=== PATIENT | male | born 1950 | race Caucasian/White ===

== ENCOUNTER → 2024-09-05 | Outpatient (CLI) | payer MEDICARE, SELFPAY ==
--- NOTE | 2024-09-05 15:47 | STRESSREP ---
Stress Test Report Exercise stress test. 74-year-old male with a history of chest pain Stress protocol: Resting EKG demonstrates normal sinus rhythm with a rate of 68 bpm resting blood pressure is 136/84 mmHg. The patient exercised according to the regular [facility] protocol for a total duration of 7 minutes and 20 seconds attaining a maximum heart rate of 153 bpm which was 104% of maximum predicted heart rate; the maximum workload was 10.1 metabolic equivalents. At rest there were no ST or T wave changes noted to suggest ischemia and at peak exercise upsloping ST changes only were noted which did not meet the criteria for ischemia. No clinical angina was noted the test was terminated due to the target heart rate being achieved/fatigue. The peak blood pressure was 158/80 mmHg. Rate-pressure product was 24,000. Conclusion: Stress test with no EKG criteria for ischemia at a high workload. No arrhythmias noted. No angina present.
== END | disposition home or self-care (01) ==
PROVIDERS: PCP Family Medicine; Referring Provider Family Medicine; Visit Provider Family Medicine
DX: R07.89 Other chest pain (principal)
CPT/HCPCS: 93017

== ENCOUNTER → 2025-01-01 | Outpatient (CLI) | payer MEDICARE, SELFPAY ==
--- NOTE | 2025-01-01 10:09 | RAD_ITS ---
PROCEDURE: CHEST PA AND LATERAL 01/01/2025 REASON FOR EXAM: SOB ON EXERTION TECHNIQUE: Procedure Code: RADCXR Modality: DX Procedure: CHEST PA AND LATERAL COMPARISON: None. 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 Lungs are hypoinflated, with minimal left basilar atelectasis seen. No evidenc e of pulmonary edema. No focal infiltrate noted. No pleural effusion or pneumothorax is seen. The cardiomediastinal silhouette is within the normal range for age. Mild thoracic spine degenerative changes are seen. No acute osseous change is evident. Reading Location: [place] [id number]
== END | disposition home or self-care (01) ==
LOC: MTRAD 10:09
PROVIDERS: PCP Family Medicine; Referring Provider Family Medicine; Visit Provider Family Medicine
DX: R06.02 Shortness of breath (principal)
CPT/HCPCS: 71046

== ENCOUNTER → 2025-01-02 | Outpatient (CLI) | payer MEDICARE, SELFPAY ==
[2025-01-02 10:27] LABS: Hematocrit 40.1 % (40-54); Hemoglobin 13.5 g/dL (13.0-16.5); Immature Granulocytes Count 0.020 X10^3/uL (0.0-0.0); Mean Corp Hgb Conc 33.7 g/dL (32-36); Mean Corpuscular Volume 93.9 fL (80-94); Mean Platelet Vol. 9.2 fl (6.2-12.0); NRBC Flagged by Analyzer 0 % (0-5); Platelet Count 244 K/mm3 (150-450); RBC Distribution Width CV 13.0 % (11.6-14.6); RBC Distribution Width SD 45.1 fl (35.1-43.9); Red Blood Count 4.27 M/mm3 (4.6-6.2); White Blood Count 6.6 K/mm3 (4.4-11.0)
[2025-01-02 10:57] LABS: AST(SGOT) 15 U/L (<=37); Alanine Aminotransfer ALT/SGPT 19 U/L (<=46); Albumin, Serum 4.2 g/dL (3.4-4.8); Alkaline Phosphatase 73 U/L (40-129); Anion Gap 12 (5-15); BUN 22 mg/dL (4-19); BUN/Creat Ratio 26.0 RATIO (10-20); Calcium,Total 9.0 mg/dL (7.6-11.0); Carbon Dioxide 23.3 mmol/L (21.0-32.0); Chloride 107 mmol/L (98-108); Cholesterol 144 mg/dL (<=200); Globulin 2.6 g/dL (2.2-4.2); Glucose 73 mg/dL (70-99); Low Density Lipoprotein Calc. 74 mg/dL; Potassium 3.7 mmol/L (3.3-5.1); Triglycerides 95 mg/dL; Very Low Density Lipoprotein 19 mg/dL (5-40); cholesterol:hdl ratio screen 2.82
[2025-01-02 11:36] LABS: PSA,Total - Annual Screen 0.26 ng/mL (0.02-4.00); Troponin T High Sensitivity 7 ng/L (<=22); Vitamin D,25 Hydroxy 34.1 ng/mL (30-100)
== END | disposition home or self-care (01) ==
PROVIDERS: PCP Family Medicine; Referring Provider Family Medicine; Visit Provider Family Medicine
DX: Z00.00 Encounter for general adult medical examination without abnormal findings (principal); Z12.5 Encounter for screening for malignant neoplasm of prostate; I15.2 Hypertension secondary to endocrine disorders; R06.02 Shortness of breath; I25.10 Atherosclerotic heart disease of native coronary artery without angina pectoris
CPT/HCPCS: 36415; 80053; 80061; 82306; 84153; 84484; 85025; G0103

== ENCOUNTER → 2025-01-23 | Outpatient (CLI) | payer MEDICARE, SELFPAY ==
--- OUTSIDE RECORDS SUMMARY | 2025-01-23 06:16 | XMS RPT_ITS | CCD ---
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 Park Attending Provider Abram, Grayson Attending Unavailable Abram, Chalon Referring Unavailable Abram, Chalon Primary Care Unavailable Abram, Chalon Primary Care Unavailable Abram, Chalon Attending Unavailable Abram, Chalon Referring Unavailable Abram, Chalon Primary Care Unavailable Abram, Chalon Attending Unavailable Abram, Chalon Referring Unavailable Abram, Chalon Primary Care Unavailable Abram, Chalon Attending Unavailable Abram, Chalon Referring Unavailable Abram, Chalon Primary Care Unavailable Abram, Chalon Consulting Unavailable Xavier Mercer Attending Unavailable Abram, Chalon Referring Unavailable Grayson Carney MD Primary Care Physician [phone] Grayson Carney MD Attending Physician Abram JANE, Grayson Referring Provider [phone] Medications Current Medications Medication Drug Class(es) Dates Sig (Normalized) Sig (Original) amoxicillin 875 mg / clavulanate 125 mg oral tablet (1 source) Penicillin-class Antibacterial Start: 05-21-2024 End: 05-28-2024 take 1 tablet by mouth twice daily amoxicillin-clavu lanate potassium (AUGMENTIN) 875-125 mg per tablet Indications: Bacterial sinusitis Take 1 tablet by mouth two times a day for 7 days. 14 tablet 05/21/2024 05/28/2024 Active atorvastatin 20 mg oral tablet (1 source) HMG-CoA Reductase Inhibitor Start: 04-28-2024 take 1 tablet by mouth once atorvastatin (LIPITOR) 20 mg tablet Take 1 tablet by mouth every afternoon. 04/28/2024 Active dutasteride 0.5 mg oral capsule (1 source) 5-alpha Reductase Inhibitor Start: 04-28-2024 take 1 capsule by mouth once daily at bedtime dutasteride (AVODART) 0.5 mg capsule Take 0.5 mg by mouth daily at bedtime. 04/28/2024 Active tamsulosin hydrochloride 0.4 mg oral capsule (1 source) alpha-Adrenergic Mickey Start: 04-28-2024 take 1 capsule by mouth once tamsulosin (FLOMAX) 0.4 mg Take 1 capsule by mouth every afternoon. 04/28/2024 Active 24 hr venlafaxine 75 mg extended release oral capsule (1 source) Serotonin and Norepinephrine Reuptake Inhibitor Start: 04-28-2024 take 1 capsule by mouth every hour venlafaxine ER (EFFEXOR XR) 75 mg 24 hr capsule Take 1 capsule by mouth every afternoon. 04/28/2024 Active Problems Active Problems Problem Classification Problem Date Documented Date Episodic/Chronic Coronary atherosclerosis and other heart disease (1 source) Atherosclerotic heart disease of [place] coronary artery without angina pectoris; Translations: [Atherosclerotic heart disease of [place] coronary artery without angina pectoris] Onset: 01-14-2025 Chronic Other lower respiratory disease (1 source) Shortness of breath; Translations: [Shortness of breath] Onset: 01-09-2025 Episodic Other upper respiratory infections (1 source) Bacterial sinusitis; Translations: [Chronic sinusitis, unspecified] 05-21-2024 Chronic Past or Other Problems Problem Classification Problem Date Documented Da te Episodic/Chronic Nonspecific chest pain (2 sources) Other chest pain; Translations: [Other chest pain] Onset: 09-26-2024 Episodic Results Test Name Value Interpretation Reference Range Facility Absolute lymphocyte countOrd ered By: Grayson Carney on 01-02-2025 Lymphocytes Auto (Unsp spec) [#/Vol] 1.76 10*3/uL 0.83-4.51 [facility] Absolute neutrophil countOrd ered By: Grayson Carney on 01-02-2025 Neutrophils (Bld) [#/Vol] 4.1 10*3/uL 2.0-7.7 [facility] Anion gap in Serum or Plasma Ordered By: Grayson Carney on 01-02-2025 Anion gap [Moles/Vol] 12 mmol/L 5-15 [facility] Automated lymphocyte count a s percentage of total leukocytesOrdered By: Grayson Carney on 01-02-2025 Lymphocytes/100 WBC Auto (Unsp spec) 26.5 % 19-41 [facility] BUN/creatinine ratioOrdered By: Grayson Carney on 01-02-2025 Urea nitrogen/Creatinine [Mass ratio] 26.0 mg/mg High 10-20 [facility] Basophil percentageOrdered B y: Grayson Carney on 01-02-2025 Basophils/100 WBC (Bld) 0.5 % 0-1 [facility] Bilirubin, totalOrdered By: Grayson Carney on 01-02-2025 Bilirubin [Mass/Vol] 0.42 mg/dL 0.00-1.30 [facility] CBC W/Diff, Automatedon 12-22 Absolute Lymph 1.76 X10 3/uL Normal 0.83-4.51 [facility] Comment on above: Performed By: #### L 500.4050, L501.9910, L506.1001, L500.4100, L100.0100, L501.4021 #### [facility] [address] [place], [address] Absolute Neut 4.1 X10 3/uL Normal 2.0-7.7 [facility] Comment on above: Performed By: #### L 500.4050, L501.9910, L506.1001, L500.4100, L100.0100, L501.4021 #### [facility] [address] [place], [address] Basophils/100 WBC (Bld) 0.5 % Normal 0-1 [facility] Comment on above: Performed By: #### L 500.4050, L501.9910, L506.1001, L500.4100, L100.0100, L501.4021 #### [facility] [address] [place], [address] Eosinophils/100 WBC (Bld) 2.3 % Normal 0-5 [facility] Comment on above: Performed By: #### L 500.4050, L501.9910, L506.1001, L500.4100, L100.0100, L501.4021 #### [facility] [address] [place], [address] Erythrocyte distribution width (RBC) [Ratio] 13.0 % Normal 11.6-14.6 [facility] Comment on above: Performed By: #### L 500.4050, L501.9910, L506.1001, L500.4100, L100.0100, L501.4021 #### [facility] [address] [place], [address] Hematocrit (Bld) [Volume fraction] 40.1 % Normal 40-54 [facility] Comment on above: Performed By: #### L 500.4050, L501.9910, L506.1001, L500.4100, L100.0100, L501.4021 #### [facility] [address] [place], [address] Hemoglobin (Bld) [Mass/Vol] 13.5 g/dL Normal 13.0-16.5 [facility] Comment on above: Performed By: #### L 500.4050, L501.9910, L506.1001, L500.4100, L100.0100, L501.4021 #### [facility] [address] [place], [address] IG% 0.300 Normal 0.0-0.9 [facility] Comment on above: Result Comment: IG% - Immature Granulocytes (promyelocytes, myelocytes and metamyelocytes) > 1% indicates that a LEFT SHIFT is Present. Performed By: #### L 500.4050, L501.9910, L506.1001, L500.4100, L100.0100, L501.4021 #### [facility] [address] [place], [address] Lymphocytes/100 WBC (Bld) 26.5 % Normal 19-41 [facility] Comment on above: Performed By: #### L 500.4050, L501.9910, L506.1001, L500.4100, L100.0100, L501.4021 #### [facility] [address] [place], [address] MCH (RBC) [Entitic mass] 31.6 pg Normal 27.0-32.0 [facility] Comment on above: Performed By: #### L 500.4050, L501.9910, L506.1001, L500.4100, L100.0100, L501.4021 #### [facility] [address] [place], [address] MCHC (RBC) [Mass/Vol] 33.7 g/dL Normal 32-36 [facility] Comment on above: Performed By: #### L 500.4050, L501.9910, L506.1001, L500.4100, L100.0100, L501.4021 #### [facility] [address] [place], [address] MCV (RBC) [Entitic vol] 93.9 fL Normal 80-94 [facility] Comment on above: Performed By: #### L 500.4050, L501.9910, L506.1001, L500.4100, L100.0100, L501.4021 #### [facility] [address] [place], [address] Monocytes/100 WBC (Bld) 8.9 % Normal 0-10 [facility] Comment on above: Performed By: #### L 500.4050, L501.9910, L506.1001, L500.4100, L100.0100, L501.4021 #### [facility] [address] [place], [address] Neutrophils/100 WBC (Bld) 61.5 % Normal 47-70 [facility] Comment on above: Performed By: #### L 500.4050, L501.9910, L506.1001, L500.4100, L100.0100, L501.4021 #### [facility] [address] [place], [address] Nucleated RBC (Bld) [#/Vol] 0 10*3/uL Normal 0-5 [facility] Comment on above: Performed By: #### L 500.4050, L501.9910, L506.1001, L500.4100, L100.0100, L501.4021 #### [facility] [address] [place], [address] Platelet mean volume (Bld) [Entitic vol] 9.2 fL Normal 6.2-12.0 [facility] Comment on above: Performed By: #### L 500.4050, L501.9910, L506.1001, L500.4100, L100.0100, L501.4021 #### [facility] [address] [place], [address] Platelets (Bld) [#/Vol] 244 10*3/uL Normal 150-450 [facility] Comment on above: Performed By: #### L 500.4050, L501.9910, L506.1001, L500.4100, L100.0100, L501.4021 #### [facility] [address] [place], [address] RBC (Bld) [#/Vol] 4.27 10*6/uL Low 4.6-6.2 [facility] Comment on above: Performed By: #### L 500.4050, L501.9910, L506.1001, L500.4100, L100.0100, L501.4021 #### [facility] [address] [place], [address] RDW SD 45.1 fl High 35.1-43.9 [facility] Comment on above: Performed By: #### L 500.4050, L501.9910, L506.1001, L500.4100, L100.0100, L501.4021 #### [facility] [address] [place], [address] WBC (Bld) [#/Vol] 6.6 10*3/uL Normal 4.4-11.0 [facility] Comment on above: Performed By: #### L 500.4050, L501.9910, L506.1001, L500.4100, L100.0100, L501.4021 #### [facility] [address] [place], [address] Calculated very low density lipoprotein (VLDL) cholesterol measurementOrdered By: Grayson Carney on 01-02-2025 Calculated very low density lipoprotein (VLDL) cholesterol measurement 19 mg/dL 5-40 [facility] Carbon dioxide, total [Moles /volume] in Central venous bloodOrdered By: Grayson Carney on 01-02-2025 CO2 [Moles/Vol] 23.3 mmol/L 21.0-32.0 [facility] Chloride assayOrdered By: Rose Carney on 01-02-2025 Chloride [Moles/Vol] 107 mmol/L 98-108 [facility] Comprehensive Metabolic Prof ilon 01-02-2025 Albumin [Mass/Vol] 4.2 g/dL Normal 3.4-4.8 [facility] Comment on above: Performed By: #### L 500.4050, L501.9910, L506.1001, L500.4100, L100.0100, L501.4021 #### [facility] [address] [place], [address] Albumin/Globulin [Mass ratio] 1.6 {ratio} Normal 0.9-2.4 [facility] Comment on above: Performed By: #### L 500.4050, L501.9910, L506.1001, L500.4100, L100.0100, L501.4021 #### [facility] [address] [place], [address] ALK PHOS 73 U/L Normal 40-129 [facility] Comment on above: Performed By: #### L 500.4050, L501.9910, L506.1001, L500.4100, L100.0100, L501.4021 #### [facility] [address] [place], [address] ALT [Catalytic activity/Vol] 19 U/L Normal <=46 [facility] Comment on above: Performed By: #### L 500.4050, L501.9910, L506.1001, L500.4100, L100.0100, L501.4021 #### [facility] [address] [place], [address] AST [Catalytic activity/Vol] 15 U/L Normal <=37 [facility] Comment on above: Performed By: #### L 500.4050, L501.9910, L506.1001, L500.4100, L100.0100, L501.4021 #### [facility] [address] [place], [address] Bilirubin [Mass/Vol] 0.42 mg/dL Normal 0.00-1.30 [facility] Comment on above: Performed By: #### L 500.4050, L501.9910, L506.1001, L500.4100, L100.0100, L501.4021 #### [facility] [address] [place], [address] BUN/CRE 26.0 RATIO High 10-20 [facility] Comment on above: Performed By: #### L 500.4050, L501.9910, L506.1001, L500.4100, L100.0100, L501.4021 #### [facility] [address] [place], [address] Calcium [Mass/Vol] 9.0 mg/dL Normal 7.6-11.0 [facility] Comment on above: Performed By: #### L 500.4050, L501.9910, L506.1001, L500.4100, L100.0100, L501.4021 #### [facility] [address] [place], [address] Chloride [Moles/Vol] 107 mmol/L Normal 98-108 [facility] Comment on above: Performed By: #### L 500.4050, L501.9910, L506.1001, L500.4100, L100.0100, L501.4021 #### [facility] [address] [place], [address] CO2 [Moles/Vol] 23.3 mmol/L Normal 21.0-32.0 [facility] Comment on above: Performed By: #### L 500.4050, L501.9910, L506.1001, L500.4100, L100.0100, L501.4021 #### [facility] [address] [place], [address] Creatinine [Mass/Vol] 0.85 mg/dL Normal 0.70-1.20 [facility] Comment on above: Performed By: #### L 500.4050, L501.9910, L506.1001, L500.4100, L100.0100, L501.4021 #### [facility] [address] [place], [address] GAP 12 Normal 5-15 [facility] Comment on above: Performed By: #### L 500.4050, L501.9910, L506.1001, L500.4100, L100.0100, L501.4021 #### [facility] [address] [place], [address] GFR/1.73 sq M.predicted among non-blacks MDRD (S/P/Bld) [Vol rate/Area] 91 mL/min/{1.73_m2} Normal >60 [facility] Comment on above: Result Comment: mL/m in/1.73m2 CKD-EPI Creatinine Equation (2020) Performed By: #### L 500.4050, L501.9910, L506.1001, L500.4100, L100.0100, L501.4021 #### [facility] [address] [place], [address] Globulin (S) [Mass/Vol] 2.6 g/dL Normal 2.2-4.2 [facility] Comment on above: Performed By: #### L 500.4050, L501.9910, L506.1001, L500.4100, L100.0100, L501.4021 #### [facility] [address] [place], [address] Glucose [Mass/Vol] 73 mg/dL Normal 70-99 [facility] Comment on above: Performed By: #### L 500.4050, L501.9910, L506.1001, L500.4100, L100.0100, L501.4021 #### [facility] [address] [place], [address] Potassium [Moles/Vol] 3.7 mmol/L Normal 3.3-5.1 [facility] Comment on above: Performed By: #### L 500.4050, L501.9910, L506.1001, L500.4100, L100.0100, L501.4021 #### [facility] [address] [place], [address] Sodium [Moles/Vol] 142 mmol/L Normal 133-145 [facility] Comment on above: Performed By: #### L 500.4050, L501.9910, L506.1001, L500.4100, L100.0100, L501.4021 #### [facility] [address] [place], [address] T PROT 6.8 g/dL Normal 5.9-8.4 [facility] Comment on above: Performed By: #### L 500.4050, L501.9910, L506.1001, L500.4100, L100.0100, L501.4021 #### [facility] [address] [place], [address] Urea nitrogen [Mass/Vol] 22 mg/dL High 4-19 [facility] Comment on above: Performed By: #### L 500.4050, L501.9910, L506.1001, L500.4100, L100.0100, L501.4021 #### [facility] [address] [place], [address] Eosinophil percentageOrdered By: Grayson Carney on 01-02-2025 Eosinophils/100 WBC (Bld) 2.3 % 0-5 [facility] Erythrocyte distribution wid th ratioOrdered By: Grayson Carney on 01-02-2025 Erythrocyte distribution width (RBC) [Ratio] 13.0 % 11.6-14.6 [facility] Erythrocyte distribution wid th standard deviationOrdered By: Grayson Carney on 01-02-2025 Erythrocyte distribution width (RBC) [Ratio] 45.1 fl High 35.1-43.9 [facility] Glomerular filtration rate ( GFR) estimation/1.73 sq m using serum, plasma, or whole bOrdered By: Grayson Carney on 01-02-2025 GFR/1.73 sq M.predicted among non-blacks MDRD (S/P/Bld) [Vol rate/Area] 91 mL/min/{1.73_m2} >60 [facility] Comment on above: mL/min/1.73m2 CKD-EP I Creatinine Equation (2020) Hematocrit Auto (Bld) [Volum e fraction]Ordered By: Grayson Carney on 01-02-2025 Hematocrit (Bld) [Volume fraction] 40.1 % 40-54 [facility] Hemoglobin measurementOrdere d By: Grayson Carney on 01-02-2025 Hemoglobin (Bld) [Mass/Vol] 13.5 g/dL 13.0-16.5 [facility] Immature granulocytes/100 WB C Auto (Bld)Ordered By: Grayson Carney on 01-02-2025 Immature granulocytes/100 WBC (Bld) 0.300 % 0.0-0.9 [facility] Comment on above: IG% - Immature Granu locytes (promyelocytes, myelocytes and metamyelocytes) > 1% indicates that a LEFT SHIFT is Present. L501.4021on 01-02-2025 Trop T High Sen 7 ng/L Normal <=22 [facility] Comment on above: Performed By: #### L 500.4050, L501.9910, L506.1001, L500.4100, L100.0100, L501.4021 #### [facility] [address] [place], [address] LDL calc ser/plasOrdered By: Grayson Carney on 01-02-2025 Cholesterol in LDL [Mass/Vol] 74 mg/dL [facility] Comment on above: Jixvnzifkh=377-077 m g/dL & Higher Qsgv=011 mg/dL or greaterFriedwald Equation for LDL-C Laboratory - Chemistry and C hemistry - challengeOrdered By: Grayson Carney on 01-02-2025 AST [Catalytic activity/Vol] 15 U/L <38 [facility] Lipid Profileon 01-02-2025 CHOL:HDL 2.82 Normal [facility] Comment on above: Performed By: #### L 500.4050, L501.9910, L506.1001, L500.4100, L100.0100, L501.4021 #### [facility] [address] [place], [address] Cholesterol [Mass/Vol] 144 mg/dL Normal <=200 [facility] Comment on above: Result Comment: Chol esterol level, Desirable <200 mg/dL Borderline high cholesterol 200-239 mg/dL High cholesterol >=240 mg/dL Recommendations of the NCEP Adult Treatment Panel for the following risk-cutoff thresholds for the [place] population. Performed By: #### L 500.4050, L501.9910, L506.1001, L500.4100, L100.0100, L501.4021 #### [facility] [address] [place], [address] Cholesterol in HDL [Mass/Vol] 51 mg/dL Normal [facility] Comment on above: Result Comment: Samantha onal Cholesterol Education Program (NCEP) guidelines: <40 mg/dL: Low HDL-cholesterol (major risk factor for CHD) >= 60 mg/dL: High HDL-cholesterol (negative risk factor for CHD) HDL-cholesterol is affected by a number of factors, e.g. smoking, exercise, hormones, sex and age. Performed By: #### L 500.4050, L501.9910, L506.1001, L500.4100, L100.0100, L501.4021 #### [facility] [address] [place], [address] Cholesterol in LDL [Mass/Vol] 74 mg/dL Normal [facility] Comment on above: Result Comment: Bord kjnlll=002-645 mg/dL Higher Ogau=349 mg/dL or greater Friedwald Equation for LDL-C Performed By: #### L 500.4050, L501.9910, L506.1001, L500.4100, L100.0100, L501.4021 #### [facility] [address] [place], [address] Cholesterol in VLDL [Mass/Vol] 19 mg/dL Normal 5-40 [facility] Comment on above: Performed By: #### L 500.4050, L501.9910, L506.1001, L500.4100, L100.0100, L501.4021 #### [facility] [address] [place], [address] Triglyceride [Mass/Vol] 95 mg/dL Normal [facility] Comment on above: Result Comment: The drugs N-Acetylcysteine and Metamizole may falsely depress this assay. Normal range: <150 mg/dL Borderline High: 150-199 mg/dL High: 200-499 mg/dL Very High: >500 mg/dL Performed By: #### L 500.4050, L501.9910, L506.1001, L500.4100, L100.0100, L501.4021 #### [facility] [address] [facility] [place], [place], [address] MCV (mean corpuscular volume ) determinationOrdered By: Grayson Carney on 01-02-2025 MCV (RBC) [Entitic vol] 93.9 fL 80-94 [facility] Mean corpuscular hemoglobin (MCH) determinationOrdered By: Grayson Carney on 01-02-2025 MCH (RBC) [Entitic mass] 31.6 pg 27.0-32.0 [facility] Mean corpuscular hemoglobin concentration (MCHC) determinationOrdered By: Grayson Carney on 01-02-2025 MCHC (RBC) [Mass/Vol] 33.7 g/dL 32-36 [facility] Mean platelet volume determi nationOrdered By: Grayson Carney on 01-02-2025 Platelet mean volume (Bld) [Entitic vol] 9.2 fL 6.2-12.0 [facility] Monocyte percentageOrdered B y: Grayson Carney on 01-02-2025 Monocytes/100 WBC (Bld) 8.9 % 0-10 [facility] Neutrophil percentageOrdered By: Grayson Carney on 01-02-2025 Neutrophils/100 WBC (Bld) 61.5 % 47-70 [facility] Nucleated red blood cell per centageOrdered By: Grayson Carney on 01-02-2025 Nucleated RBC/100 WBC (Bld) [Ratio] 0 % 0-5 [facility] PSA,Total - Annual Screenon 01-02-2025 PSA,TOT SCREEN 0.26 ng/mL Normal 0.02-4.00 [facility] Comment on above: Result Comment: This test was performed using the [employer] tPSA method. Measured values of a patient??sample can vary depending on the testing procedure used. PSA values determined on patient samples by different testing procedures cannot be used interchangeably. If there is a change in PSA assays while monitoring therapy, sequential testing should be performed to confirm baseline values. Performed By: #### L 500.4050, L501.9910, L506.1001, L500.4100, L100.0100, L501.4021 #### [facility] [place], [address] Platelet countOrdered By: Rose Carney on 01-02-2025 Platelets (Bld) [#/Vol] 244 10*3/uL 150-450 [facility] Potassium measurement (mass/ volume)Ordered By: Grayson Carney on 01-02-2025 Potassium (Unsp spec) [Mass/Vol] 3.7 mmol/L 3.3-5.1 [facility] RBC Auto (Bld) [#/Vol]Ordere d By: Grayson Carney on 01-02-2025 RBC (Bld) [#/Vol] 4.27 10*6/uL Low 4.6-6.2 [facility] Screening total cholesterol/ high density lipoprotein (HDL) cholesterol ratioOrdered By: Grayson Carney on 01-02-2025 Cholesterol.total/Choles terol in HDL [Mass ratio] 2.82 {ratio} [facility] Serum creatinine measurement (mass/volume)Ordered By: Grayson Carney on 01-02-2025 Creatinine [Mass/Vol] 0.85 mg/dL 0.70-1.20 [facility] Serum globulin measurementOr dered By: Grayson Carney on 01-02-2025 Globulin (S) [Mass/Vol] 2.6 g/dL 2.2-4.2 [facility] Serum glucose measurement (m ass/volume)Ordered By: Grayson Carney on 01-02-2025 Glucose [Mass/Vol] 73 mg/dL 70-99 [facility] Serum or plasma alanine kirkland otransferase (ALT) measurementOrdered By: Bipinanders Abram on 01-02-2025 ALT [Catalytic activity/Vol] 19 U/L <47 [facility] Serum or plasma albumin baldo urement (mass/volume)Ordered By: Grayson Carney on 01-02-2025 Albumin [Mass/Vol] 4.2 g/dL 3.4-4.8 [facility] Serum or plasma albumin/glob ulin mass ratioOrdered By: [facility] on 01-02-2025 Albumin/Globulin [Mass ratio] 1.6 {ratio} 0.9-2.4 [facility] Serum or plasma alkaline imer sphatase measurementOrdered By: [facility] 01-02-2025 ALP [Catalytic activity/Vol] 73 U/L 40-129 [facility] Serum or plasma calcium baldo urement (mass/volume)Ordered By: Grayson Carney on 01-02-2025 Calcium [Mass/Vol] 9.0 mg/dL 7.6-11.0 [facility] Serum or plasma cholesterol in HDL measurement (mass/volume)Ordered By: Bipinanders Carney on 01-02-2025 Cholesterol in HDL [Mass/Vol] 51 mg/dL >40 [facility] Comment on above: National Cholesterol Education Program (NCEP) guidelines:<40 mg/dL: Low HDL-cholesterol (major risk factor for CHD)>= 60 mg/dL: High HDL-cholesterol (negative risk factor for CHD)HDL-cholesterol is affected by a number of factors, e.g. smoking, exercise, hormones, sex and age. Serum or plasma cholesterol measurement (mass/volume)Ordered By: Bipinanders Carney on 01-02-2025 Cholesterol [Mass/Vol] 144 mg/dL <201 [facility] Comment on above: Cholesterol level, D esirable <200 mg/dLBorderline high cholesterol 200-239 mg/dLHigh cholesterol >=240 mg/dLRecommendations of the NCEP Adult Treatment Panel for the following risk-cutoff thresholds for the [place] population. Serum or plasma urea nitroge n measurement (mass/volume)Ordered By: Grayson Carney on 01-02-2025 Urea nitrogen [Mass/Vol] 22 mg/dL High 4-19 [facility] Sodium levelOrdered By: Bipin Carney on 01-02-2025 Sodium [Moles/Vol] 142 mmol/L 133-145 [facility] Total proteinOrdered By: Ernestina Carney on 01-02-2025 Protein [Mass/Vol] 6.8 g/dL 5.9-8.4 [facility] Triglycerides measurementOrd ered By: Grayson Carney on 01-02-2025 Triglyceride [Mass/Vol] 95 mg/dL <199 [facility] Comment on above: The drugs N-Acetylcy steine and Metamizole may falsely depress this assay. Normal range: <150 mg/dLBorderline High: 150-199 mg/dLHigh: 200-499 mg/dLVery High: >500 mg/dL Troponin T.cardiac [Mass/vol ume] in Serum or Plasma by High sensitivity methodOrdered By: Grayson Carney on 01-02-2025 Troponin T.cardiac High sensitivity method [Mass/Vol] 7 ng/L <22 [facility] Vitamin D,25 Hydroxyon 01-02 Vitamin D 25-OH 34.1 ng/mL Normal 30-100 [facility] Comment on above: Result Comment: Sadie min D Status Deficiency: <20 ng/mL (50nmol/L) Insufficiency: 20-30 ng/mL (50-75 nmol/L) Sufficiency: 30-100 ng/mL (75-250 nmol/L) Toxicity: >100 ng/mL (>250 nmol/L) Performed By: #### L 500.4050, L501.9910, L506.1001, L500.4100, L100.0100, L501.4021 #### [facility] Laboratory [address] [place], [address] White blood cell (WBC) count Ordered By: Grayson Carney on 01-02-2025 WBC (Bld) [#/Vol] 6.6 10*3/uL 4.4-11.0 [facility] Chest PA and Lateralon 01-01 Chest PA and Lateral [facility] Imaging Services [address] [place] [address] Chest PA and Lateral MR#: [id number] Acct: [id number] Name: EVELYN BALL Rep #: [id number] : 1950 M 74 From: Corbin Abarca PCP: Dr. Grayson Carney MD Status: REG CLI Study: Chest PA and Lateral Date of Exam: 01/01/25 Exam# [id number] Ordering Dr: Grayson Carney MD PROCEDURE: CHEST PA AND LATERAL 01/01/2025 REASON FOR EXAM: SOB ON EXERTION TECHNIQUE: Procedure Code: RADCXR Modality: DX Procedure: CHEST PA AND LATERAL COMPARISON: None. 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 Lungs are hypoinflated, with minimal left basilar atelectasis seen. No evidence of pulmonary edema. No focal infiltrate noted. No pleural effusion or pneumothorax is seen. The cardiomediastinal silhouette is within the normal range for age. Mild thoracic spine degenerative changes are seen. No acute osseous change is evident. Reading Location: [place] [address] CC: Dr. Grayson Carney MD Analyzer Sales: Signed Normal [facility] Cardiovascular stress test r eportOrdered By: Xavier Mercer on 09-05-2024 Study report [facility] Services [address] [place] [address] MR#: [id number] Acct: [id number] Name: EVELYN BALL Rep #: [id number] : 1950 74 From: Xavier Mercer MD Primary Care: Dr. Grayson Carney MD Status: REG CLI Referring Dr: Grayson Carney MD Sex: M C Stress Test Report Exercise stress test. 74-year-old male with a history of chest pain Stress protocol: Resting EKG demonstrates normal sinus rhythm with a rate of 68 bpm resting bloodpressure is 136/84 mmHg. The patient exercised according to the regular [facility] protocol for a total duration of 7 minutes and 20 seconds attaining a maximum heart rate of 153 bpm which was 104% of maximum predicted heart rate; the maximum workload was 10.1 metabolic equivalents. At rest there were no ST or T wave changes noted to suggest ischemia and at peak exercise upsloping ST changesonly were noted which did not meet the criteria for ischemia. No clinical angina was noted the test was terminated due to the target heart rate being achieved/fatigue. The peak blood pressure was 158/80 mmHg. Rate-pressure product was 24,000. Conclusion: Stress test with no EKG criteria for ischemia at a high workload. No arrhythmias noted. No angina present. 09/05/241548 Date _ Xavier Mercer MD CC: Dr. Grayson Carney MD ~ Date Dictated: 09/05/241546 Date Transcribed: 09/05/241546 Analyzer Sales: [place] Signed [facility] Work Phone: Stress Reporton 09-05-2024 Stress Report [facility] Cardiovascular Services [address] [place] [address] MR#: [id number] Acct: [id number] Name: EVELYN BALL Rep #: [id number] : 1950 74 From: Xavier Mercer MD Primary Care: Dr. Grayson Carney MD Status: REG CLI Referring Dr: Grayson Carney MD Sex: M C Stress Test Report Exercise stress test. 74-year-old male with a history of chest pain Stress protocol: Resting EKG demonstrates normal sinus rhythm with a rate of 68 bpm resting blood pressure is 136/84 mmHg. The patient exercised according to the regular [facility] protocol for a total duration of 7 minutes and 20 seconds attaining a maximum heart rate of 153 bpm which was 104% of maximum predicted heart rate; the maximum workload was 10.1 metabolic equivalents. At rest there were no ST or T wave changes noted to suggest ischemia and at peak exercise upsloping ST changes only were noted which did not meet the criteria for ischemia. No clinical angina was noted the test was terminated due to the target heart rate being achieved/fatigue. The peak blood pressure was 158/80 mmHg. Rate- pressure product was 24,000. Conclusion: Stress test with no EKG criteria for ischemia at a high workload. No arrhythmias noted. No angina present. 09/05/24 1549 Date Xavier Mercer MD CC: Dr. Grayson Carney MD Date Dictated: 09/05/241546 Date Transcribed: 09/05/241546 Analyzer Sales: [place] Signed [facility] Office Visit (UCWSTR ) EVELYN BALL ([id number]) 1950 M Date Time Provider Department 05/21/24 9:30 AM MÓNICA FREEMAN [facility] During your visit today, we recorded the following information about you: Temperature Pulse Respiration Blood pressure 96.9 degrees 74/minute 16/minute 132/84 Weight 88.3 kg Mónica Freeman APRN.[facility] 05/21/2024 11:44 AM Signed Subjective HPI HPI Evelyn Abarca Anthony is a 73 year old male who presents today for CC of cough, congestion. This started 1 week ago. Has tried otc medication for relief. Symptoms are worsened by nothing. Risk factors sick exposures. Hx of sinus infections. Nonsmoker. Patient not known to [facility], denies renal/hepatic disease. .Patient presents with: Chest Congestion: cough, sinus pressure, headache x 1 week No past medical history on file. No past surgical history on file. ALLERGIES Patient has no known allergies. MEDICATIONS atorvastatin (LIPITOR) 20 mg tablet Take 1 tablet by mouth every afternoon. dutasteride (AVODART) 0.5 mg capsule Take 0.5 mg by mouth daily at bedtime. tamsulosin (FLOMAX) 0.4 mg Take 1 capsule by mouth every afternoon. venlafaxine ER (EFFEXOR XR) 75 mg 24 hr capsule Take 1 capsule by mouth every afternoon. No family history on file. Review of Systems Constitutional: Negative for fever. HENT: Positive for congestion and sinus pain. Negative for ear pain, nosebleeds and sore throat. Respiratory: Positive for cough. Negative for shortness of breath and wheezing. Musculoskeletal: Negative for neck pain. Objective Blood pressure 132/84, pulse 74, temperature 36.1 ?C (96.9 ?F), resp. rate 16, weight 88.3 kg (194 lb 10.7 oz), SpO2 96%. Physical Exam Constitutional: General: He is not in acute distress. Appearance: He is not toxic-appearing or diaphoretic. HENT: Head: Normocephalic and atraumatic. Nose: Nose normal. Mouth/Throat: Pharynx: Uvula midline. No pharyngeal swelling, oropharyngeal exudate, posterior oropharyngeal erythema or uvula swelling. Eyes: General: Lids are normal. No scleral icterus. Right eye: No discharge. Left eye: No discharge. Conjunctiva/sclera: Conjunctivae normal. Pupils: Pupils are equal, round, and reactive to light. Neck: Trachea: Trachea normal. Cardiovascular: Rate and Rhythm: Normal rate and regular rhythm. Heart sounds: Normal heart sounds. Pulmonary: Effort: Pulmonary effort is normal. Breath sounds: Normal breath sounds. Musculoskeletal: Cervical back: Normal range of motion and neck supple. Lymphadenopathy: Cervical: No cervical adenopathy. Right cervical: No superficial cervical adenopathy. Left cervical: No superficial cervical adenopathy. Skin: Findings: No rash. Neurological: Mental Status: He is alert and oriented to person, place, and time. ASSESSMENT/PLAN: 1. Bacterial sinusitis - ICD9: 473.9, 041.9, ICD10: J32.9, B96.89 - Will begin treatment with as per antibiotic as written, see orders - Supportive care with plenty of fluids, rest, and analgesia prn. - Follow up in 3-5 days if symptoms persist or worsen. -If you experience chest pain/shortness of breath go to ER - AMOXICILLIN 875 MG-POTASSIUM CLAVULANATE 125 MG TABLET Agrees to plan Declines avs Mónica Freeman APRN.CNP Allergies As of Date: 05/21/2024 (No Known Allergies) Date Reviewed: 05/21/2024 Reviewed by: Jayne Holbrook MA - Fully Assessed Reason for Visit: Chest Congestion [236] Cmt: cough, sinus pressure, headache x 1 week Primary Visit Diagnosis:Bacterial sinusitis [J32.9, B96.89] Order(s):amoxicillin- clavulanate potassium (AUGMENTIN) 875-125 mg per tabletTake 1 tablet by mouth two times a day for 7 days.Disp: 14 tabletRfl: 0 Prescriptions as of 05/21/2024 - atorvastatin (LIPITOR) 20 mg tablet Take 1 tablet by mouth every afternoon. - dutasteride (AVODART) 0.5 mg capsule Take 0.5 mg by mouth daily at bedtime. - tamsulosin (FLOMAX) 0.4 mg Take 1 capsule by mouth every afternoon. - venlafaxine ER (EFFEXOR XR) 75 mg 24 hr capsule Take 1 capsule by mouth every afternoon. - amoxicillin-clavulana te potassium (AUGMENTIN) 875-125 mg per tablet Take 1 tablet by mouth two times a day for 7 days. Problem List As Of Date: 05/21/2024 (None) Prescriptions ordered this encounter Disp Refills Start End AMOXICILLIN 875 MG-POTASSIUM CLAVULA* 14 t* 0 05/21/2024 05/28/2024 Route: ORAL Sig: Take 1 tablet by mouth two times a day for 7 days. Encounter Status:Closed by MÓNICA FREEMAN on 05/21/[address] [facility] Vital Signs Date Time Vital Sign Value Performing Clinician Faci lity 05-21-2024 09:39-0500 Body temperature 96.91 [degF] Mónica Freeman APRN.CNP Work Phone: [facility] 05-21-2024 09:39-0500 Body weight 88.3 kg Mónica Freeman APRN.CNP Work Phone: [facility] 05-21-2024 09:39-0500 Diastolic blood pressure 84 mm[Hg] Mónica Freeman APRN.CNP Work Phone: [facility] 05-21-2024 09:39-0500 Heart rate 74 /min Mónica Freeman SEARCH ENGINE MARKETING STRATEGIST.LAUNDRY ASSISTANT Work Phone: [facility] 05-21-2024 09:39-0500 Respiratory rate 16 /min Mónica Freeman SEARCH ENGINE MARKETING STRATEGIST.LAUNDRY ASSISTANT Work Phone: [facility] 05-21-2024 09:39-0500 SaO2% (BldA) [Mass fraction] 96 % Mónica Freeman SEARCH ENGINE MARKETING STRATEGIST.LAUNDRY ASSISTANT Work Phone: [facility] 05-21-2024 09:39-0500 Systolic blood pressure 132 mm[Hg] Mónica Freeman SEARCH ENGINE MARKETING STRATEGIST.LAUNDRY ASSISTANT Work Phone: [facility] Encounters Encounter Date Encounter Type Care Provider Facility Start: 01-23-2025 ambulatory Grayson [facility] Facility:[facility] Start: 01-09-2025 Encounter for genera l adult medical examination without abnormal findings Grayson Carney [facility] Start: 01-02-2025 End: 01-02-2025 ambulatory Grayson Carney MD Work Phone: -[facility] [employer] Start: 01-02-2025 End: 01-02-[address] Grayson Carney MD -Labor[facility] [place] Work Phone: Start: 01-01-2025 End: 01-02-2025 ambulatory [facility] Facility:[facility] Start: 01-01-2025 End: 01-01-[address] Grayson Carney MD -Radiology [place] Work Phone: Start: 01-01-2025 End: 01-01-2025 ambulatory Grayson Abram Facility:[facility] Start: 09-05-2024 ambulatory Grayson Carney Facility:[facility] Start: 09-05-2024 Non-patient / Non-visit Dr. Lorena JANE -[facility] Start: 09-05-2024 End: 09-05-2024 ambulatory Grayson Carney MD Work Phone: [facility] Work Phone: Start: 09-05-2024 End: 09-05-[address] Grayson Carney MD -Cardiovascular Services Work Phone: Start: 09-05-2024 End: 09-05-2024 ambulatory Grayson Carney Facility:[facility] Start: 05-21-2024 End: 05-21-[facility] Start: 05-21-2024 End: 05-21-2024 Patient encounter procedure Mónica Freeman APRN.LAUNDRY ASSISTANT Work Phone: [facility] Comment on above: Bacterial sinusitis (Primary Dx) Procedures Date Procedure Procedure Detail Performing Clinician Start: 01-02-2025 Prostate specific an tigen measurement Grayson Carney MD Work Phone: Comment on above: This test was perfor med using the [employer] tPSA method. Measured values of a patient sample can vary depending on the testing procedure used. PSA values determined on patient samples by different testing procedures cannot be used interchangeably. If there is a change in PSA assays while monitoring therapy, sequential testing should be performed to confirm baseline values. Start: 01-02-2025 Vitamin D, 25-hydrox y measurement Grayson Carney MD Work Phone: Comment on above: Vitamin D StatusDefi ciency: <20 ng/mL (50nmol/L)Insufficiency: 20-30 ng/mL (50-75 nmol/L)Sufficiency: 30-100 ng/mL (75-250 nmol/L)Toxicity: >100 ng/mL (>250 nmol/L) Start: 01-01-2025 Radiologic exam ches t 2 views Grayson Carney MD Work Phone: Plan of Treatment Date Care Activity Detail Author Start: 2025 RSV Vaccine (1 - 1-d ose 75+ series) RSV Vaccine (1 - 1-dose 75+ series) [facility] Start: 04-23-2024 Advance Directive Discussion Advance Directive Discussion [facility] Start: 12-23-2023 Covid-19 Vaccine ( season) Covid-19 Vaccine () [facility] Start: 12-23-2023 Influenza vaccination Influenza Vacc ine (#1) [facility] Start: 2000 Pneumococcal Vaccine : 50+ (1 of 1 - PCV) Pneumococcal Vaccine: 50+ (1 of 1 - PCV) [facility] Start: 2000 Shingrix Vaccine (1 of 2) Shingrix V accine (1 of 2) [facility] Start: 08-16-1995 Diabetes Screening Diabetes Screenin g [facility] Start: 08-16-1995 Screening for malign ant neoplasm of colon [facility] Start: 1985 [facility] Start: 1969 Urine microalbumin profile DTaP,Tdap,Td Vaccine (1 - Tdap) [facility] Start: 1968 Anxiety Screening Anxiety Screening [facility] Start: 1968 Depression Screening Depression Scre ening [facility] Start: 1968 Hepatitis C screening Hepatitis C [facility] Payers Date Payer Category Payer Self-pay 2024 Medicare AETNA MEDICARE A ETNA MEDICARE PPO [id number] 2024-Present [phone] [address] [place] [address] PPO [id number] 2024 Medicare [id number] Unknown [id number] Unknown [id number] Unknown [id number] Unknown [id number] Unknown [id number] Social History Date Type Detail Facility Tobacco smoking status NMIS Tobacco smoking consumption unknown [facility] Start: 1950 Sex assigned at Not on file [facility] 1950 Sex Assigned At Male [facility] Radiology Diagnostic study note 01-01-2025 Note Date & Type Note Facility 01-01-2025 Radiology Diagnostic study note [facility] Imaging Services [address] [place] [address] Chest PA and Lateral MR#: [id number] Acct: [id number] Name: EVELYN BALL Rep #: [id number] : 1950 M 74 From: Josep Condon MD PCP: Dr. Grayson Carney MD Status: REG CL I Study:Chest PA and Lateral Date of Exam: 01/01/25 Exam# [id number] Ordering Dr: Ernestina Carney MD PROCEDURE: CHEST PA AND LATERAL 01/01/2025 REASON FOR EXAM: SOB ON EXERTION TECHNIQUE: Procedure Code: RADCXR Modality: DX Procedure: CHEST PA AND LATERAL COMPARISON: None. 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 Lungs are hypoinflated, with minimal left basilar atelectasis seen. No evidenceof pulmonary edema. No focal infiltrate noted. No pleural effusion or pneumothorax is seen. The cardiomediastinal silhouette is within the normal range for age. Mild thoracic spine degenerative changes are seen. No acute osseous change is evident. Reading Location: [place] [address] CC: Dr. Grayson Carney MD ~ Analyzer Sales: Signed [facility] Progress note 05-21-2024 Note Date & Type Note Facility 05-21-2024 Note HNO ID: [id number] Author: MÓNICA FREEMAN APRN.LAUNDRY ASSISTANT Service: ? Author Type: Nurse Practitioner Type: Progress Notes Filed: 05/21/2024 11:44 Note Text: Subjective HPI HPI Evelyn Ball is a 73 year old male who presents today for CC of cough, congestion. This started 1 week ago. Has tried otc medication for relief. Symptoms are worsened by nothing. Risk factors sick exposures. Hx of sinus infections. Nonsmoker. Patient not known to [facility], denies renal/hepatic disease. .Patient presents with: Chest Congestion: cough, sinus pressure, headache x 1 week No past medical history on file. No past surgical history on file. ALLERGIES Patient has no known allergies. MEDICATIONS atorvastatin (LIPITOR) 20 mg tablet Take 1 tablet by mouth every afternoon. dutasteride (AVODART) 0.5 mg capsule Take 0.5 mg by mouth daily at bedtime. tamsulosin (FLOMAX) 0.4 mg Take 1 capsule by mouth every afternoon. venlafaxine ER (EFFEXOR XR) 75 mg 24 hr capsule Take 1 capsule by mouth every afternoon. No family history on file. Review of Systems Constitutional: Negative for fever. HENT: Positive for congestion and sinus pain. Negative for ear pain, nosebleeds and sore throat. Respiratory: Positive for cough. Negative for shortness of breath and wheezing. Musculoskeletal: Negative for neck pain. Objective Blood pressure 132/84, pulse 74, temperature 36.1 ?C (96.9 ?F), resp. rate 16, weight 88.3 kg (194 lb 10.7 oz), SpO2 96%. Physical Exam Constitutional: General: He is not in acute distress. Appearance: He is not toxic-appearing or diaphoretic. HENT: Head: Normocephalic and atraumatic. Nose: Nose normal. Mouth/Throat: Pharynx: Uvula midline. No pharyngeal swelling, oropharyngeal exudate, posterior oropharyngeal erythema or uvula swelling. Eyes: General: Lids are normal. No scleral icterus. Right eye: No discharge. Left eye: No discharge. Conjunctiva/sclera: Conjunctivae normal. Pupils: Pupils are equal, round, and reactive to light. Neck: Trachea: Trachea normal. Cardiovascular: Rate and Rhythm: Normal rate and regular rhythm. Heart sounds: Normal heart sounds. Pulmonary: Effort: Pulmonary effort is normal. Breath sounds: Normal breath sounds. Musculoskeletal: Cervical back: Normal range of motion and neck supple. Lymphadenopathy: Cervical: No cervical adenopathy. Right cervical: No superficial cervical adenopathy. Left cervical: No superficial cervical adenopathy. Skin: Findings: No rash. Neurological: Mental Status: He is alert and oriented to person, place, and time. ASSESSMENT/PLAN: 1. Bacterial sinusitis - ICD9: 473.9, 041.9, ICD10: J32.9, B96.89 - Will begin treatment with as per antibiotic as written, see orders - Supportive care with plenty of fluids, rest, and analgesia prn. - Follow up in 3-5 days if symptoms persist or worsen. -If you experience chest pain/shortness of breath go to ER - AMOXICILLIN 875 MG-POTASSIUM CLAVULANATE 125 MG TABLET Agrees to plan Declines jessicas Mónica Freeman APRN.[facility] History of Present illness Narrative 05-21-2024 Mónica Freeman APRN.TEZNIN - 05/21/2024 9:39 AM EST Note Date & Type Note Facility 05-21-2024 History of Presen t illness Narrative Subjective HPI HPI Evelyn Ball is a 73 year old male who presents today for CC of cough, congestion. This started 1 week ago. Has tried otc medication for relief. Symptoms are worsened by nothing. Risk factors sick exposures. Hx of sinus infections. Nonsmoker. Patient not known to [facility], denies renal/hepatic disease. .Patient presents with: Chest Congestion: cough, sinus pressure, headache x 1 week No past medical history on file. No past surgical history on file. ALLERGIES Patient has no known allergies. MEDICATIONS atorvastatin (LIPITOR) 20 mg tablet Take 1 tablet by mouth every afternoon. dutasteride (AVODART) 0.5 mg capsule Take 0.5 mg by mouth daily at bedtime. tamsulosin (FLOMAX) 0.4 mg Take 1 capsule by mouth every afternoon. venlafaxine ER (EFFEXOR XR) 75 mg 24 hr capsule Take 1 capsule by mouth every afternoon. No family history on file. Review of Systems Constitutional: Negative for fever. HENT: Positive for congestion and sinus pain. Negative for ear pain, nosebleeds and sore throat. Respiratory: Positive for cough. Negative for shortness of breath and wheezing. Musculoskeletal: Negative for neck pain. Objective Blood pressure 132/84, pulse 74, temperature 36.1 C (96.9 F), resp. rate 16, weight 88.3 kg (194 lb 10.7 oz), SpO2 96%. Physical Exam Constitutional: General: He is not in acute distress. Appearance: He is not toxic-appearing or diaphoretic. HENT: Head: Normocephalic and atraumatic. Nose: Nose normal. Mouth/Throat: Pharynx: Uvula midline. No pharyngeal swelling, oropharyngeal exudate, posterior oropharyngeal erythema or uvula swelling. Eyes: General: Lids are normal. No scleral icterus. Right eye: No discharge. Left eye: No discharge. Conjunctiva/sclera: Conjunctivae normal. Pupils: Pupils are equal, round, and reactive to light. Neck: Trachea: Trachea normal. Cardiovascular: Rate and Rhythm: Normal rate and regular rhythm. Heart sounds: Normal heart sounds. Pulmonary: Effort: Pulmonary effort is normal. Breath sounds: Normal breath sounds. Musculoskeletal: Cervical back: Normal range of motion and neck supple. Lymphadenopathy: Cervical: No cervical adenopathy. Right cervical: No superficial cervical adenopathy. Left cervical: No superficial cervical adenopathy. Skin: Findings: No rash. Neurological: Mental Status: He is alert and oriented to person, place, and time. ASSESSMENT/PLAN: 1. Bacterial sinusitis - ICD9: 473.9, 041.9, ICD10: J32.9, B96.89 - Will begin treatment with as per antibiotic as written, see orders - Supportive care with plenty of fluids, rest, and analgesia prn. - Follow up in 3-5 days if symptoms persist or worsen. -If you experience chest pain/shortness of breath go to ER - AMOXICILLIN 875 MG-POTASSIUM CLAVULANATE 125 MG TABLET Agrees to plan Declines avs Mónica Freeman APRN.LAUNDRY ASSISTANT documented in this encounter [facility] Evaluation note Note Date & Type Note Facility Evaluation note Diagnosis Bacterial sinusitis- Primary Unspecified sinusitis (chronic) documented in this encounter [facility] Evaluation note Note Date & Type Note Facility Evaluation note No assessment information availa ble [facility] Work Phone: Reason for referral (narrative) Note Date & Type Note Facility Reason for referral (narrative) No reason for referral information available [facility] Work Phone: Summary Purpose Family History No Family History Records FoundNo Family History Records Found Advance Directives No Advanced Directives Records FoundNo Advanced Directives Records Found Chief Complaint and Reason for Visit Chief Complaint Admit Date CHEST PAIN September 05, 2024 10:22 am CHEST PAIN September 05, 2024 3:47p m Chief Complaint Admit Date SOB on January 01, 2025 10:08am Additional Source Comments Source Comments (unrecognize d section and content) In the event this informatio n is protected by the Federal Confidentiality of Alcohol and Drug Abuse Patient Records regulations: The Federal rules restrict any use of the information to criminally investigate or prosecute any alcohol or drug abuse patient.[facility] Reason for Visit (unrecogniz ed section and content) Reason Comments Chest Congestion cough, sinus pressur e, headache x 1 week Care Teams (unrecognized sec tion and content) Airplane [employer] Relationship Specialty Start Date End Date Grayson Carney MD Basil Gold [facility] [address] [place] [address] PCP - General Internal Medicine 05/21/24 Team Status: Active Member Role Status Juan Carney MD Primary Care Provider Active Team Status: Inactive Member Role Status Juan Carney MD Primary Care Provider Active St art: September 05, 2024 End: September 05, 2024 Grayson Carney MD Attending Provider Active Start : September 05, 2024 End: September 05, 2024 Grayson Carney MD Referring Provider Active Start : September 05, 2024 End: September 05, 2024 Team Status: Active Member Role Status Juan Carney MD Primary Care Provider Active St art: September 05, 2024 Grayson Carney MD Referring Provider Active Start : September 05, 2024 Grayson Carney MD Other Provider Active Start: Luciano alcantar 2024 Dr. Xavier Mercer MD Attending Provider Active S tart: September 05, 2024 Team Status: Active Member Role/Relationship Status Juan Carney MD Primary care physician Active Team Status: Inactive Member Role/Relationship Status Juan Carney MD Primary care physician Active S tart: January 01, 2025 End: January 01, 2025 Grayson Carney MD Attending physician Active Star t: January 01, 2025 End: January 01, 2025 Grayson Carney MD Referring Provider Active Start : January 01, 2025 End: January 01, 2025 Team Status: Inactive Member Role/Relationship Status Dates Grayson Carney MD Primary care physician Active S tart: January 02, 2025 End: January 02, 2025 Grayson Carney MD Attending physician Active Star t: January 02, 2025 End: January 02, 2025 Grayson Carney MD Referring Provider Active Start : January 02, 2025 End: January 02, 2025 (unrecognized sect ion and content) No Status Records FoundNo Status Records Found INFORMATION SOURCE (unrecogn ized section and content) DATE CREATED AUTHOR 05/23/[address] [facility] DATE CREATED AUTHOR AUTHOR'S [place]VILLE THAPA 01/15/2025 [facility] Goals (unrecognized section and content) Goals may be documented in a n alternate sectionGoals may be documented in an alternate sectionGoals may be documented in an alternate section FOR RECORDS PERTAINING TO PATIENTS WHO ARE OR HAVE BEEN ENROLLED IN A CHEMICAL DEPENDENCY/SUBSTANCEABUSE PROGRAM, SOME INFORMATION MAY BE OMITTED. This clinical summary was aggregated from multiple sources. Caution should be exercised in using it in the provision of clinical care. This summary normalizes information from multiple sources, and as a consequence, information in this document may materially change the coding, format and clinical context of patient data. In addition, data may be omitted in some cases. CLINICAL DECISIONS SHOULD BE BASED ON THE PRIMARY CLINICAL RECORDS. [employer] provides no warranty or guarantee of the accuracy or completeness of information in this document.
--- NOTE | 2025-01-25 17:58 | STRESSREP ---
Stress Test Report Date: 01/23/2025 Procedure: Pharmacologic stress nuclear imaging study Indications: CAD, dyspnea Consent: Per the patient Procedure: The patient underwent pharmacologic (Regadenoson) evaluation with a peak heart rate of 88 beats per minute (60%predicted maximal heart rate) and a peak blood pressure of 146/92 mmHg. The baseline ECG demonstrated normal sinus rhythm. EKG during lexiscan infusion revealed no significant ischemic changes. EKG post infusion revealed no significant ischemic changes [There were no cardiac dysrhythmias pretest, during pharmacologic infusion, or recovery]. [There was no complaint of chest discomfort during pharmacologic infusion or recovery]. The examination was discontinued secondary to completion of protocol. Impression: 1. Lexiscan stress test test is negative for Lexiscan infusion induced EKG changes of ischemia. 2. Lexiscan stress test test is negative for Lexiscan infusion induced chest pain. 3. Results of the nuclear portion of the test is as below Myocardial perfusion imaging study: Technique: The patient was injected with 12 millicuries of technetium 99m Cardiolite and subsequently rest SPECT Cardiolite nuclear imaging was obtained in the horizontal long, vertical long, and short axis views. The patient underwent pharmacologic [Regadenoson 0.4mg] evaluation. Please see above for details. The patient was injected with 36 millicuries of technetium 99m Cardiolite and subsequently stress SPECT Cardiolite nuclear imaging was obtained in the horizontal long, vertical long, and short axis views. A gated Cardiolite study at peak stress was obtained. Interpretation: Rest and stress SPECT Cardiolite nuclear imaging status post realignment, normalization, and attenuation correction demonstrate no evidence of significant ischemia or infarction. Gated images reveal no significant regional wall motion abnormalities. The reported LVEF is 69%. Impression: 1. There is no evidence of significant ischemia or infarction. 2. Estimated ejection fraction is 69%. This note was generated with [employer] incation software. It may contain incorrect words, spelling, and punctuation that were not noted in checking the note before signing.
== END | disposition home or self-care (01) ==
PROVIDERS: PCP Family Medicine; Referring Provider Family Medicine; Visit Provider Family Medicine
DX: I25.10 Atherosclerotic heart disease of native coronary artery without angina pectoris (principal)
CPT/HCPCS: 78452; 93017; A9500; A4216; J2785

== ENCOUNTER → 2025-03-11 | Outpatient (CLI) | payer MEDICARE, SELFPAY ==
--- NOTE | 2025-03-11 13:55 | ECHOCS_ITS ---
Reason For Study Reason For Study: DYSPNEA Procedure This was a 2D Doppler, Color Flow transthoracic echocardiogram. Contrast injection was performed. Exam performed in department. Left Ventricle Normal LV size. The left ventricular ejection fraction is 55 %. Stage 1 diastolic dysfunction. No regional wall motion abnormalities noted. Right Ventricle Normal RV size. Normal systolic function. Atria Normal left atrium. Normal right atrium. Mitral Valve Normal mitral valve. Mild (1+) eccentric mitral valve insufficiency. Tricuspid Valve Normal tricuspid valve. Mild (1+) tricuspid valve insufficiency. Pulmonary artery systolic pressure is 30 mmHg. Aortic Valve Trisinus/trileaflet aortic valve. Pulmonic Valve Normal pulmonic valve. Great Vessels Normal aortic root. The pulmonary artery is normal size. Inferior vena cava collapse with respiration. Pericardium/Pleural No pericardial effusion. Medication 22 gauge I.V. with prn adaptor inserted into right arm. Diluted definity 2ml given slow IV push to enhance endocardial definition. MMode/2D Measurements & Calculations LVIDd: 3.8 cm IVSd: 1.00 cm LVOT diam: 2.2 cm LVIDs: 2.4 cm LVPWd: 0.96 cm RVDd: 3.7 cm FS: 37.7 % LVOT area: 3.9 cm2 Ao root diam: 2.9 cm asc Aorta Diam: 3.3 cm LAV(MOD- bp): 44.5 ml LAV(MOD- bp) Indexed: 21.5 ml/m2 LAV(MOD- sp2): 44.7 ml LAV(MOD- sp4): 42.0 ml SV(MOD- sp4): 49.4 ml LVAd ap4: 29.6 cm2 LVAd ap2: 32.9 cm2 LVLd ap4: 7.8 cm LVLd ap2: 8.1 cm SI(MOD- sp4): 23.9 ml/m2 EDV(MOD-sp4): 92.2 ml EDV(MOD-sp2): 109.1 ml EDV(sp4-el): 95.2 ml EDV(sp2-el): 112.9 ml LVAs ap4: 18.7 cm2 LVAs ap2: 20.8 cm2 LVLs ap4: 6.9 cm LVLs ap2: 7.2 cm ESV(MOD-sp4): 42.8 ml ESV(MOD-sp2): 50.6 ml ESV(sp4-el): 42.8 ml ESV(sp2-el): 51.1 ml EF(MOD-sp4): 53.6 % EF(MOD-sp2): 53.6 % EF(sp4-el): 55.1 % SV(MOD-sp2): 58.5 ml SV(sp4-el): 52.5 ml Ao sinus diam: 3.4 cm SI(MOD-sp2): 28.3 ml/m2 Ao ST Junction: 2.8 cm LA dimension(2D): 3.7 cm LA A4 area: 16.7 cm2 RA A4 area: 12.8 cm2 TAPSE: 2.0 cm Time Measurements MV dec time: 0.21 sec Doppler Measurements & Calculations MV E max víctor: 50.3 cm/sec Lat Peak E' Víctor: 7.7 cm/sec Med Peak E' Víctor: 5.9 cm/sec MV A max víctor: 60.8 cm/sec E/E' lat: 6.5 E/E' med: 8.6 MV E/A: 0.83 Ao V2 max: 107.4 cm/sec LV V1 max: 80.9 cm/sec MV dec slope: 243.7 cm/sec2 Ao max P.6 mmHg LV V1 max P.6 mmHg Ao V2 mean: 75.1 cm/sec LV V1 mean P.6 mmHg Ao mean P.6 mmHg LV V1 mean: 61.4 cm/sec Ao V2 VTI: 22.1 cm LV V1 VTI: 15.6 cm AV (velocity ratio): 0.71 SOLEDAD(I,D): 2.8 cm2 SOLEDAD(V,D): 2.9 cm2 SV(LVOT): 60.9 ml PA V2 max: 110.5 cm/sec PI end-d víctor: 83.0 cm/sec TR max víctor: 253.4 cm/sec TR max P.7 mmHg ECHO/Echo Complete W/ Contrast Interpretation Summary Normal LV size. The left ventricular ejection fraction is 55 %. Stage 1 diastolic dysfunction. Mild (1+) tricuspid valve insufficiency. Pulmonary artery systolic pressure is 30 mmHg. Contrast injection was performed. Ordering Physician: Yosi Pineda Referring Physician: Yosi Pineda Performed By: Isabel Peña RDCS
--- OUTSIDE RECORDS SUMMARY | 2025-03-11 15:51 | XMS RPT_ITS | CCD ---
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 Park Attending Provider Rommel JANE, Grayson Primary Care Physician [phone] Grayson Carney MD Attending Physician [phone] Rommel JANE, Grayson Referring Provider [phone] Rommel JANE, Grayson Nurse Practitioner [phone] Teresa JNAE, Dr. Santos Attending Physician Edwin JANE, Dr. Deluca Attending Physician Rommel, Chalon Primary Care Unavailable Tom Moore Attending Unavailabl e Rommel, Chalon Consulting Unavailable Rommel, Chalon Referring Unavailable Xavier Mercer Attending Unavailable Rommel, Chalon Primary Care Unavailable Rommel, Chalon Consulting Unavailable Rommel, Chalon Referring Unavailable Rommel, Chalon Primary Care Unavailable Yosi Pineda Attending Unavailable Rommel, Chalon Referring Unavailable Rommel, Chalon Primary Care Unavailable Rommel, Bipinon Attending Unavailable Rommel, Chalon Referring Unavailable Yosi Pineda Referring Unavailable Yosi Pineda Attending Unavailable Rommel, Chalon Primary Care Unavailable Rommel, Chalon Primary Care Unavailable Viktor Mccormack Attending Unavailable Rommel, Chalon Referring Unavailable Rommel, Chalon Primary Care Unavailable Rommel, Chalon Attending Unavailable Rommel, Chalon Referring Unavailable Rommel, Chalon Primary Care Unavailable Rommel, Chalon Attending Unavailable Rommel, Chalon Referring Unavailable Grayson Carney Primary Care Unavailable Grayson Carney Attending Unavailable Grayson Carney Referring Unavailable Medications Current Medications Medication Drug Class(es) Dates Sig (Normalized) Sig (Original) amoxicillin 875 mg / clavulanate 125 mg oral tablet (1 source) Penicillin-class Antibacterial Start: 05-21-2024 End: 05-28-2024 take 1 tablet by mouth twice daily amoxicillin-clavul anate potassium (AUGMENTIN) 875-125 mg per tablet Indications: Bacterial sinusitis Take 1 tablet by mouth two times a day for 7 days. 14 tablet 05/21/2024 05/28/2024 Active atorvastatin 20 mg oral tablet (2 sources) HMG-CoA Reductase Inhibitor Start: 01-27-2025 take 1 tablet by mouth once daily Atorvastatin (Lipitor) 20 mg tablet Active 20 mg PO daily January 27, 2025 12:00am Complies with drug therapy Start: 04-28-2024 take 1 tablet by mouth once at orvastatin (LIPITOR) 20 mg tablet Take 1 tablet by mouth every afternoon. 04/28/2024 Active dutasteride 0.5 mg oral capsule (2 sources) 5-alpha Reductase Inhibitor Start: 01-27-2025 take 1 capsule by mouth once daily Dutasteride 0.5 mg capsule Active 0.5 mg PO daily January 27, 2025 12:00am Complies with drug therapy Start: 04-28-2024 take 1 capsule by mo [facility] once daily at bedtime dutasteride (AVODART) 0.5 mg capsule Take 0.5 mg by mouth daily at bedtime. 04/28/2024 Active Multivitamin tablet (1 source) Start: 02-13-2025 Multivitamin t ablet Active 1 {tbl} PO daily February 13, 2025 12:00am Complies with drug therapy tamsulosin hydrochloride 0.4 mg oral capsule (2 sources) alpha-Adrenerg ic Mickey Start: 01-27-2025 take 1 capsule by mouth once daily Tamsulosin 0.4 mg capsule Active 0.4 mg PO daily January 27, 2025 12:00am Complies with drug therapy Start: 04-28-2024 take 1 capsule by mouth once t amsulosin (FLOMAX) 0.4 mg Take 1 capsule by mouth every afternoon. 04/28/2024 Active 24 hr venlafaxine 75 mg extended release oral capsule (2 sources) Serotonin and Norepinephrine Reuptake Inhibitor Start: 01-27-2025 take 1 capsule by mouth once daily Venlafaxine 75 mg capsule,extended release 24hr Active 75 mg PO daily January 27, 2025 12:00am Complies with drug therapy Start: 04-28-2024 take 1 capsule by mo uth every hour venlafaxine ER (EFFEXOR XR) 75 mg 24 hr capsule Take 1 capsule by mouth every afternoon. 04/28/2024 Active Problems Active Problems Problem Classification Problem Date Documented Da te Episodic/Chronic Asthma (1 source) Asthma; Translations: [Unspecified asthma, uncomplicated] 01-27-2025 Chronic Coronary atherosclerosis and other heart disease (4 sources) Coronary atherosclerosis; Translations: [Atherosclerotic heart disease of [place] coronary artery without angina pectoris] Onset: 02-16-2025 02-13-2025 Chronic Essential hypertension (2 sources) Hypertensive disorder; Translations: [Essential (primary) hypertension] 02-13-2025 Chronic Osteoporosis (1 source) Osteoporosis; Translations: [Age-related osteoporosis without current pathological fracture] 01-27-2025 Chronic Other and unspecified benign neoplasm (1 source) Polyp of colon; Translations: [Polyp of colon] 01-27-2025 Episodic Other lower respiratory disease (2 sources) Dyspnea on exertion; Translations: [Shortness of breath] 01-27-2025 Episodic Other lower respiratory disease (2 sources) Shortness of breath; Translations: [Shortness of breath] Onset: 02-13-2025 Episodic Other upper respiratory infections (1 source) Bacterial sinusitis; Translations: [Chronic sinusitis, unspecified] 05-21-2024 Chronic Pulmonary heart disease (1 source) Pulmonary hypertension; Translations: [Pulmonary hypertension, unspecified] 01-27-2025 Chronic Past or Other Problems Problem Classification Problem Date Documented Da te Episodic/Chronic Nonspecific chest pain (2 sources) Other chest pain; Translations: [Other chest pain] Onset: 09-26-2024 Episodic Results Test Name Value Interpretation Reference Range Facility /Tony 02-25-2025 /[facility] Medical Records Department [address] [place] [address] PAT - Anesthesia 02/25/25 1415 MR#: [id number] Acct: [id number] Name: EVELYN CRUZ Rep #: [id number] : 1950 74 From: Erik Newton MD PCP: Dr. 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 When Was Last Pacemaker Check QUESTION #4 FULL TEXT: You/Your Family Experience fever (hyperthermia) with Anesthesia Last Oral Intake Last Oral intake: Last Oral Intake NPO since Meds taken in AM with sips of water? Meds patient instructed to take am of surgery PONV PONV - texturing machine fixer: PONV - texturing machine fixer Female No 02/25/25 12:40 HX of Motion Sickness No 02/25/25 12:40 HX of N/V After Surgery No 02/25/25 12:40 Non-Smoker Yes 02/25/25 12:40 Duration of Surgery greater No 02/25/25 12:40 than 60 minutes Number of Risk Factors 1 02/25/25 12:40 PONV Score Low Risk 02/25/25 12:40 Height Weight Height Weight: Anesthesia: Height Weight Height 5 ft 11 in 02/13/25 08:22 Respiratory Assessment Respiratory Assessment - texturing machine fixer: Respiratory Tract Infection Hx - texturing machine fixer Hx Respiratory Tract Infection No 02/25/25 12:40 STOP Sleep Apnea STOP Sleep Apnea - texturing machine fixer: STOP Sleep Apnea - texturing machine fixer Hx Hypertension No 02/25/25 12:40 Hx Sleep Apnea No 02/25/25 12:40 CPAP BIPAP Do you snore loudly (louder No 02/25/25 12:40 than talking or can be heard Do you often feel tired/ No 02/25/25 12:40 fatigued/ sleepy during daytime? Has anyone observed you stop No 02/25/25 12:40 breathing during sleep? STOP Results Negative 02/25/25 12:40 QUESTION #5 FULL TEXT : Do you snore loudly (louder than talking or can be heard through closed doors)? 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 Specify any problems Hx of Preganancy in last 3 N/A 02/25/25 12:40 Months Nurse Filling Out Transfusion NBUCHER 02/25/25 12:40 Questions: Date: 02/25/25 02/25/25 12:40 Time: 12:41 02/25/25 12:40 Patient unable to answer at this time (ie. confused, unrespo /Reproduction History /Reproductive History - texturing machine fixer: /Reproductive Hx- texturing machine fixer Hx Now No 02/25/25 12:40 Gestational Age (in weeks): EDC: Hx Hx Para Hx Section SAB No 02/25/25 12:40 Does the father of the baby or his family experience fever w Father of the baby Malignant Hypertension history comment [facility] Medical History (Updated 02/25/25 @ 12:46 by Libertad Olmedo) Wears glasses BPH (benign prostatic hyperplasia) Prostate disease High cholesterol Gastric reflux Former smoker History of echocardiogram History of stress test Cardiology follow-up encounter History of kidney stones Osteoporosis Asthma Colon polyp SOB (shortness of breath) on exertion CAD (coronary atherosclerotic disease) Hypertension Pulmonary hypertension Home Medications ???Medication ???Instructions ???Recorded ???Last Taken ???Type atorvastatin 20 mg tablet (Lipitor) 20 mg PO QDAY 01/27/25 Unknown History dutasteride 0.5 mg capsule 0.5 mg PO QDAY 01/27/25 Unknown Hi story tamsulosin 0.4 mg capsule 0.4 mg PO QDAY 01/27/25 Unknown Hi story venlafaxine 75 mg capsule,extended 75 mg PO Q (more content not included)... Normal [facility] Cardiology Visit Reporton Cardiology Visit Report [facility] [address] [place] [address] OFFICE VISIT Date of Service: 02/13/25 MR#: [id number] Acct: [id number] Name: EVELYN CRUZ Rep #: [id number] : 1950 Provider: Dr. Yosi hatfield MD Age/Sex: 74/M Location[place] [facility] [place] Status: Signed with Addenda ADDENDUM by Dr. Yosi Pineda MD on 02/13/25 at 0921 Addendum Addendum Details:: ECG in office today shows normal sinus rhythm incomplete right bundle branch block heart rate of 81 bpm and otherwise is unremarkable. Assessment and Plan Assessment and Plan (1) SOB (shortness of breath) on exertion: Status: Acute (2) Hypertension: Status: Chronic Qualifiers: Hypertension type: primary hypertension Qualified Code(s): I10 - Essential (primary) hypertension (3) CAD (coronary atherosclerotic disease): Status: Acute Qualifiers: Coronary Disease-Associated Artery/Lesion type: unspecified vessel or lesion type [place] vs. transplanted heart: [place] heart Associated angina: with unspecified form of angina Qualified Code(s): I25.119 - Atherosclerotic heart disease of [place] coronary artery with unspecified angina pectoris Orders: Orders 12 Lead EKG performed by [facility] [place] Today I25.10 - Atherosclerotic heart disease of [place] coronary artery without angina pectoris, R06.02 - Shortness of breath Echo Complete Today R06.02 - Shortness of breath Plan Details Follow Up: 1 Year (With Dr. Pineda or HERNÁN and as needed) 02/13/25 09 Date Yosi Pineda MD cc: * Signed HPI HPI History of Present Illness Details: Patient 74-year-old white male that comes in today for new patient visit. The patient is referred for dyspnea on exertion. Patient reports that he moved here about a year ago from [place]. After moving here to [facility] he noted when he was able to get out early this spring and walk that he was having some chest sensation that was associated with shortness of breath and a burning sensation in his chest that resolved with rest. He was walking 2 miles a day originally and now has got down the point he can only walk about 1/2 mile per day outside. He actually did a treadmill stress test September 05, 2024 where he went 10 METS with no ECG changes no dyspnea on exertion no angina he went 7-1/2 minutes of a Ángel protocol. Subsequently the patient has had progressive dyspnea on exertion as noted and is down to 1/2 mile walking outside. He does have a history in his chart of asthma he is not sure his how this was diagnosed but he does describe doing pulmonary function testing. The patient also recently on January 25, 2025 underwent a Lexiscan pharmacologic nuclear stress test which showed no evidence of infarct or ischemia and an EF estimated 69%. The patient has not had an echocardiogram. The patient also has a history of hypertension but he is on no antihypertensive therapy by his report. Blood pressure in office today is 141/88. The patient does have a history of hyperlipidemia which is well-controlled on atorvastatin. There is no early family history of coronary disease he is not diabetic and does not smoke. The patient is not allergic to iodine. The patient denies any PND orthopnea denies any syncope or near syncope. He does not exert himself much in the home indoors and home environment. All of his activities when he is short of breath appear to be outside. He was able to walk 10 minutes on a treadmill and august with only appropriate shortness of breath. Intake Vital Signs 02/13/25 08:22 Height 5 ft 11 in Weight: 199 lb BMI 27.7 BP 141/88 H Blood Pressure Location Lt brachial Position Sitting Respiration 18 Pulse 84 Pulse Source NIBP Pulse Oximetry (%) 92 Oxygen Delivery Method room air Intake Visit Reasons: SOB On Exertion (Rommel) Producer Director Required: No Accompanied by: Self Is patient in pain?: No Allergies No Known Allergies Allergy (Unverified 02/13/25 08:18) Medications ???Medication ???Instructions ???Recorded ???Confirmed ???Type atorvastatin 20 mg tablet (Lipitor) 20 mg PO QDAY 01/27/25 01/27/25 History dutasteride 0.5 mg capsule 0.5 mg PO QDAY 01/27/25 01/27/25 H istory tamsulosin 0.4 mg capsule 0.4 mg PO QDAY 01/27/25 01/27/25 H istory venlafaxine 75 mg capsule,extended 75 mg PO QDAY 01/27/25 01/27/25 History release 24 hr multivitamin 1 tab PO QDAY 02/13/25 02/13/25 Hi story Have you fallen in the past year?: No PFSH Medical History Osteoporosis Asthma Colon polyp SOB (shortness of breath) on exertion CAD (coronary atherosclerotic disease) Hypertension Pulmonary hypertension Family History ... Normal [facility] Cardiovascular stress test r eportOrdered By: Tom Moore on 01-25-2025 Study report [facility] [address] [place] [id number] MR#: [id number] Acct: [id number] Name: EVELYN CRUZ Rep #: [id number] : 1950 74 From: Tom josue MD Primary Care: Dr. Grayson Carney MD Status: REG I Referring Dr: Grayson Carney MD Sex: M C Stress Test Report Date: 01/23/2025 Procedure: Pharmacologic stress nuclear imaging study Indications: CAD, dyspnea Consent: Per the patient Procedure: The patient underwent pharmacologic (Regadenoson) evaluation with a peak heart rate of 88 beats per minute (60%predicted maximal heart rate) and a peak blood pressure of 146/92 mmHg. The baseline ECG demonstrated normal sinus rhythm. EKG during lexiscan infusionrevealed no significant ischemic changes. EKG post infusion revealed no significant ischemic changes [There were no cardiac dysrhythmias pretest, during pharmacologic infusion, or recovery]. [There was no complaint of chest discomfort during pharmacologic infusion or recovery]. The examination was discontinued secondary to completion of protocol. Impression: 1. Lexiscan stress test test is negative for Lexiscan infusion induced EKG changes of ischemia. 2. Lexiscan stress test test is negative for Lexiscan infusion induced chest pain. 3. Results of the nuclear portion of the test is as below Myocardial perfusion imaging study: Technique: The patient was injected with 12 millicuries of technetium 99m Cardiolite and subsequently rest SPECT Cardiolite nuclear imaging was obtained in the horizontal long, vertical long, and short axis views. The patient underwent pharmacologic [Regadenoson 0.4mg] evaluation. Please see above for details. Thepatient was injected with 36 millicuries of technetium 99m Cardiolite and subsequently stress SPECT Cardiolite nuclear imaging was obtained in the horizontal long, vertical long, and short axis views. A gated Cardiolite study at peak stress was obtained. Interpretation: Rest and stress SPECT Cardiolite nuclear imaging status post realignment, normalization, and attenuation correction demonstrate no evidence of significantischemia or infarction. Gated images reveal no significant regional wall motionabnormalities. The reported LVEF is 69%. Impression: 1. There is no evidence of significant ischemia or infarction. 2. Estimated ejection fraction is 69%. This note was generated with Take the Interviewation software. It may contain incorrectwords, spelling, and punctuation that were not noted in checking the note beforesigning. 01/25/25 1800 Date _ Tom Moore MD CC: Dr. Grayson Carney MD ~ Date Dictated: 01/25/251757 Date Transcribed: 01/25/251757 Button Attaching Machine Operator: BEENA Signed [facility] Work Phone: Stress Reporton 01-25-2025 Stress Report [facility] [address] [place] [address] MR#: [id number] Acct: [id number] Name: EVELYN CRUZ Rep #: [id number] : 1950 74 From: Tom Moore MD Primary Care: Dr. Grayson Carney MD Status: REG CLI Referring Dr: Grayson Carney MD Sex: M C Stress Test Report Date: 01/23/2025 Procedure: Pharmacologic stress nuclear imaging study Indications: CAD, dyspnea Consent: Per the patient Procedure: The patient underwent pharmacologic (Regadenoson) evaluation with a peak heart rate of 88 beats per minute (60%predicted maximal heart rate) and a peak blood pressure of 146/92 mmHg. The baseline ECG demonstrated normal sinus rhythm. EKG during lexiscan infusion revealed no significant ischemic changes. EKG post infusion revealed no significant ischemic changes [There were no cardiac dysrhythmias pretest, during pharmacologic infusion, or recovery]. [There was no complaint of chest discomfort during pharmacologic infusion or recovery]. The examination was discontinued secondary to completion of protocol. Impression: 1. Lexiscan stress test test is negative for Lexiscan infusion induced EKG changes of ischemia. 2. Lexiscan stress test test is negative for Lexiscan infusion induced chest pain. 3. Results of the nuclear portion of the test is as below Myocardial perfusion imaging study: Technique: The patient was injected with 12 millicuries of technetium 99m Cardiolite and subsequently rest SPECT Cardiolite nuclear imaging was obtained in the horizontal long, vertical long, and short axis views. The patient underwent pharmacologic [Regadenoson 0.4mg] evaluation. Please see above for details. The patient was injected with 36 millicuries of technetium 99m Cardiolite and subsequently stress SPECT Cardiolite nuclear imaging was obtained in the horizontal long, vertical long, and short axis views. A gated Cardiolite study at peak stress was obtained. Interpretation: Rest and stress SPECT Cardiolite nuclear imaging status post realignment, normalization, and attenuation correction demonstrate no evidence of significant ischemia or infarction. Gated images reveal no significant regional wall motion abnormalities. The reported LVEF is 69%. Impression: 1. There is no evidence of significant ischemia or infarction. 2. Estimated ejection fraction is 69%. This note was generated with Take the Interviewation software. It may contain incorrect words, spelling, and punctuation that were not noted in checking the note before signing. 01/25/25 1800 Date Tom Moore MD CC: Dr. Grayson Carney MD Date Dictated: 01/25/251757 Date Transcribed: 01/25/251757 Button Attaching Machine Operator: NN Signed [facility] Absolute lymphocyte countOrd ered By: Grayson Carney on 01-02-2025 Lymphocytes Auto (Unsp spec) [#/Vol] 1.76 10*3/uL 0.83-4.51 [facility] Absolute neutrophil countOrd ered By: Grayson Carney on 01-02-2025 Neutrophils (Bld) [#/Vol] 4.1 10*3/uL 2.0-7.7 [facility] Anion gap in Serum or Plasma Ordered By: Grayson Carney on 01-02-2025 Anion gap [Moles/Vol] 12 mmol/L 5-15 [facility] Automated lymphocyte count a s percentage of total leukocytesOrdered By: Grayson Carney on 01-02-2025 Lymphocytes/100 WBC Auto (Unsp spec) 26.5 % 19-41 [facility] BUN/creatinine ratioOrdered By: Grayson Carney on 01-02-2025 Urea nitrogen/Creatinine [Mass ratio] 26.0 mg/mg High 10-20 [facility] Basophil percentageOrdered B y: Grayson Carney on 01-02-2025 Basophils/100 WBC (Bld) 0.5 % 0-[address] [facility] Bilirubin, totalOrdered By: Grayson Carney on 01-02-2025 Bilirubin [Mass/Vol] 0.42 mg/dL 0.00-1.30 [facility] CBC W/Diff, Automatedon 12-22 Absolute Lymph 1.76 X10 3/uL Normal 0.83-4.51 [facility] Comment on above: Performed By: #### L 500.4050, L501.9910, L506.1001, L500.4100, L100.0100, L501.4021 #### [facility] [address] [place], [address] Absolute Neut 4.1 X10 3/uL Normal 2.0-7.7 [facility] Comment on above: Performed By: #### L 500.4050, L501.9910, L506.1001, L500.4100, L100.0100, L501.4021 #### [facility] [address] [place], [address] Basophils/100 WBC (Bld) 0.5 % Normal 0-[address] [facility] Comment on above: Performed By: #### L 500.4050, L501.9910, L506.1001, L500.4100, L100.0100, L501.4021 #### [facility] [address] [place], [address] Eosinophils/100 WBC (Bld) 2.3 % Normal 0-5 [facility] Comment on above: Performed By: #### L 500.4050, L501.9910, L506.1001, L500.4100, L100.0100, L501.4021 #### [facility] [address] [place], [address] Erythrocyte distribution width (RBC) [Ratio] 13.0 % Normal 11.6-14.6 [facility] Comment on above: Performed By: #### L 500.4050, L501.9910, L506.1001, L500.4100, L100.0100, L501.4021 #### [facility] [address] [place], [address] Hematocrit (Bld) [Volume fraction] 40.1 % Normal 40-54 [facility] Comment on above: Performed By: #### L 500.4050, L501.9910, L506.1001, L500.4100, L100.0100, L501.4021 #### [facility] [address] [place], [address] Hemoglobin (Bld) [Mass/Vol] 13.5 g/dL Normal 13.0-16.5 [facility] Comment on above: Performed By: #### L 500.4050, L501.9910, L506.1001, L500.4100, L100.0100, L501.4021 #### [facility] [address] [place], [address] IG% 0.300 Normal 0.0-0.9 [facility] Comment on above: Result Comment: IG% - Immature Granulocytes (promyelocytes, myelocytes and metamyelocytes) > 1% indicates that a LEFT SHIFT is Present. Performed By: #### L 500.4050, L501.9910, L506.1001, L500.4100, L100.0100, L501.4021 #### [facility] [address] [place], [address] Lymphocytes/100 WBC (Bld) 26.5 % Normal 19-41 [facility] Comment on above: Performed By: #### L 500.4050, L501.9910, L506.1001, L500.4100, L100.0100, L501.4021 #### [facility] [address] [place], [address] MCH (RBC) [Entitic mass] 31.6 pg Normal 27.0-32.0 [facility] Comment on above: Performed By: #### L 500.4050, L501.9910, L506.1001, L500.4100, L100.0100, L501.4021 #### [facility] [address] [place], [address] MCHC (RBC) [Mass/Vol] 33.7 g/dL Normal 32-36 [facility] Comment on above: Performed By: #### L 500.4050, L501.9910, L506.1001, L500.4100, L100.0100, L501.4021 #### [facility] [address] [place], [address] MCV (RBC) [Entitic vol] 93.9 fL Normal 80-[address] [facility] Comment on above: Performed By: #### L 500.4050, L501.9910, L506.1001, L500.4100, L100.0100, L501.4021 #### [facility] [address] [place], [address] Monocytes/100 WBC (Bld) 8.9 % Normal 0-[address] [facility] Comment on above: Performed By: #### L 500.4050, L501.9910, L506.1001, L500.4100, L100.0100, L501.4021 #### [facility] [address] [place], [address] Neutrophils/100 WBC (Bld) 61.5 % Normal 47-70 [facility] Comment on above: Performed By: #### L 500.4050, L501.9910, L506.1001, L500.4100, L100.0100, L501.4021 #### [facility] [address] [place], [address] Nucleated RBC (Bld) [#/Vol] 0 10*3/uL Normal 0-5 [facility] Comment on above: Performed By: #### L 500.4050, L501.9910, L506.1001, L500.4100, L100.0100, L501.4021 #### [facility] [address] [place], [address] Platelet mean volume (Bld) [Entitic vol] 9.2 fL Normal 6.2-12.0 [facility] Comment on above: Performed By: #### L 500.4050, L501.9910, L506.1001, L500.4100, L100.0100, L501.4021 #### [facility] [address] [place], [address] Platelets (Bld) [#/Vol] 244 10*3/uL Normal 150-450 [facility] Comment on above: Performed By: #### L 500.4050, L501.9910, L506.1001, L500.4100, L100.0100, L501.4021 #### [facility] [address] [place], [address] RBC (Bld) [#/Vol] 4.27 10*6/uL Low 4.6-6.2 [facility] Comment on above: Performed By: #### L 500.4050, L501.9910, L506.1001, L500.4100, L100.0100, L501.4021 #### [facility] [address] [place], [address] RDW SD 45.1 fl High 35.1-43.9 [facility] Comment on above: Performed By: #### L 500.4050, L501.9910, L506.1001, L500.4100, L100.0100, L501.4021 #### [facility] [address] [place], [address] WBC (Bld) [#/Vol] 6.6 10*3/uL Normal 4.4-11.0 [facility] Comment on above: Performed By: #### L 500.4050, L501.9910, L506.1001, L500.4100, L100.0100, L501.4021 #### [facility] [address] [place], [address] Calculated very low density lipoprotein (VLDL) cholesterol measurementOrdered By: Grayson Carney on 01-02-2025 Calculated very low density lipoprotein (VLDL) cholesterol measurement 19 mg/dL 5-40 [facility] Carbon dioxide, total [Moles /volume] in Central venous bloodOrdered By: Grayson Carney on 01-02-2025 CO2 [Moles/Vol] 23.3 mmol/L 21.0-32.0 [facility] Chloride assayOrdered By: Rose Carney on 01-02-2025 Chloride [Moles/Vol] 107 mmol/L 98-108 [facility] Comprehensive Metabolic Prof ilon 01-02-2025 Albumin [Mass/Vol] 4.2 g/dL Normal 3.4-4.8 [facility] Comment on above: Performed By: #### L 500.4050, L501.9910, L506.1001, L500.4100, L100.0100, L501.4021 #### [facility] [address] [place], [address] Albumin/Globulin [Mass ratio] 1.6 {ratio} Normal 0.9-2.4 [facility] Comment on above: Performed By: #### L 500.4050, L501.9910, L506.1001, L500.4100, L100.0100, L501.4021 #### [facility] [address] [place], [address] ALK PHOS 73 U/L Normal 40-129 [facility] Comment on above: Performed By: #### L 500.4050, L501.9910, L506.1001, L500.4100, L100.0100, L501.4021 #### [facility] [address] [place], [address] ALT [Catalytic activity/Vol] 19 U/L Normal <=46 [facility] Comment on above: Performed By: #### L 500.4050, L501.9910, L506.1001, L500.4100, L100.0100, L501.4021 #### [facility] [address] [place], [address] AST [Catalytic activity/Vol] 15 U/L Normal <=37 [facility] Comment on above: Performed By: #### L 500.4050, L501.9910, L506.1001, L500.4100, L100.0100, L501.4021 #### [facility] [address] [place], [address] Bilirubin [Mass/Vol] 0.42 mg/dL Normal 0.00-1.30 [facility] Comment on above: Performed By: #### L 500.4050, L501.9910, L506.1001, L500.4100, L100.0100, L501.4021 #### [facility] [address] [place], [address] BUN/CRE 26.0 RATIO High 10-20 [facility] Comment on above: Performed By: #### L 500.4050, L501.9910, L506.1001, L500.4100, L100.0100, L501.4021 #### [facility] [address] [place], [address] Calcium [Mass/Vol] 9.0 mg/dL Normal 7.6-11.0 [facility] Comment on above: Performed By: #### L 500.4050, L501.9910, L506.1001, L500.4100, L100.0100, L501.4021 #### [facility] [address] [place], [address] Chloride [Moles/Vol] 107 mmol/L Normal 98-108 [facility] Comment on above: Performed By: #### L 500.4050, L501.9910, L506.1001, L500.4100, L100.0100, L501.4021 #### [facility] [address] [place], [address] CO2 [Moles/Vol] 23.3 mmol/L Normal 21.0-32.0 [facility] Comment on above: Performed By: #### L 500.4050, L501.9910, L506.1001, L500.4100, L100.0100, L501.4021 #### [facility] [address] [place], [address] Creatinine [Mass/Vol] 0.85 mg/dL Normal 0.70-1.20 [facility] Comment on above: Performed By: #### L 500.4050, L501.9910, L506.1001, L500.4100, L100.0100, L501.4021 #### [facility] [address] [place], [address] GAP 12 Normal 5-15 [facility] Comment on above: Performed By: #### L 500.4050, L501.9910, L506.1001, L500.4100, L100.0100, L501.4021 #### [facility] [address] [place], [address] GFR/1.73 sq M.predicted among non-blacks MDRD (S/P/Bld) [Vol rate/Area] 91 mL/min/{1.73_m2} Normal >60 [facility] Comment on above: Result Comment: mL/m in/1.73m2 CKD-EPI Creatinine Equation (2020) Performed By: #### L 500.4050, L501.9910, L506.1001, L500.4100, L100.0100, L501.4021 #### [facility] [address] [place], [address] Globulin (S) [Mass/Vol] 2.6 g/dL Normal 2.2-4.2 [facility] Comment on above: Performed By: #### L 500.4050, L501.9910, L506.1001, L500.4100, L100.0100, L501.4021 #### [facility] [address] [place], [address] Glucose [Mass/Vol] 73 mg/dL Normal 70-99 [facility] Comment on above: Performed By: #### L 500.4050, L501.9910, L506.1001, L500.4100, L100.0100, L501.4021 #### [facility] [address] [place], [address] Potassium [Moles/Vol] 3.7 mmol/L Normal 3.3-5.1 [facility] Comment on above: Performed By: #### L 500.4050, L501.9910, L506.1001, L500.4100, L100.0100, L501.4021 #### [facility] [address] [place], [address] Sodium [Moles/Vol] 142 mmol/L Normal 133-145 [facility] Comment on above: Performed By: #### L 500.4050, L501.9910, L506.1001, L500.4100, L100.0100, L501.4021 #### [facility] [address] [place], [address] T PROT 6.8 g/dL Normal 5.9-8.4 [facility] Comment on above: Performed By: #### L 500.4050, L501.9910, L506.1001, L500.4100, L100.0100, L501.4021 #### [facility] [address] [place], [address] Urea nitrogen [Mass/Vol] 22 mg/dL High 4-19 [facility] Comment on above: Performed By: #### L 500.4050, L501.9910, L506.1001, L500.4100, L100.0100, L501.4021 #### [facility] [address] [place], [address] Eosinophil percentageOrdered By: Grayson Carney on 01-02-2025 Eosinophils/100 WBC (Bld) 2.3 % 0-5 [facility] Erythrocyte distribution wid th ratioOrdered By: [facility] on 01-02-2025 Erythrocyte distribution width (RBC) [Ratio] 13.0 % 11.6-14.6 [facility] Erythrocyte distribution wid th standard deviationOrdered By: [facility] on 01-02-2025 Erythrocyte distribution width (RBC) [Ratio] 45.1 fl High 35.1-43.9 [facility] Glomerular filtration rate ( GFR) estimation/1.73 sq m using serum, plasma, or whole bOrdered By: [facility] on 01-02-2025 GFR/1.73 sq M.predicted among non-blacks MDRD (S/P/Bld) [Vol rate/Area] 91 mL/min/{1.73_m2} >60 [facility] Comment on above: mL/min/1.73m2 CKD-EP I Creatinine Equation (2020) Hematocrit Auto (Bld) [Volum e fraction]Ordered By: Grayson Carney on 01-02-2025 Hematocrit (Bld) [Volume fraction] 40.1 % 40-54 [facility] Hemoglobin measurementOrdere d By: [facility] on 01-02-2025 Hemoglobin (Bld) [Mass/Vol] 13.5 g/dL 13.0-16.5 [facility] Immature granulocytes/100 WB C Auto (Bld)Ordered By: [facility] on 01-02-2025 Immature granulocytes/100 WBC (Bld) 0.300 % 0.0-0.9 [facility] Comment on above: IG% - Immature Granu locytes (promyelocytes, myelocytes and metamyelocytes) > 1% indicates that a LEFT SHIFT is Present. L501.4021on 01-02-2025 Trop T High Sen 7 ng/L Normal <=22 [facility] Comment on above: Performed By: #### L 500.4050, L501.9910, L506.1001, L500.4100, L100.0100, L501.4021 #### [facility] [place], [address] LDL calc ser/plasOrdered By: Grayson Ravike on 01-02-2025 Cholesterol in LDL [Mass/Vol] 74 mg/dL [facility] Comment on above: Ilxckaxirf=898-126 m g/dL & Higher Gstc=525 mg/dL or greaterFriedwald Equation for LDL-C Laboratory - Chemistry and C hemistry - challengeOrdered By: Grayson Ravike on 01-02-2025 AST [Catalytic activity/Vol] 15 U/L <38 [facility] Lipid Profileon 01-02-2025 CHOL:HDL 2.82 Normal [facility] Comment on above: Performed By: #### L 500.4050, L501.9910, L506.1001, L500.4100, L100.0100, L501.4021 #### [facility] [address] [place], [address] Cholesterol [Mass/Vol] 144 mg/dL Normal <=200 [facility] Comment on above: Result Comment: Chol esterol level, Desirable <200 mg/dL Borderline high cholesterol 200-239 mg/dL High cholesterol >=240 mg/dL Recommendations of the NCEP Adult Treatment Panel for the following risk-cutoff thresholds for the [place] population. Performed By: #### L 500.4050, L501.9910, L506.1001, L500.4100, L100.0100, L501.4021 #### [facility] [address] [place], [place], [address] Cholesterol in HDL [Mass/Vol] 51 mg/dL Normal [facility] Comment on above: Result Comment: Samantha onal Cholesterol Education Program (NCEP) guidelines: <40 mg/dL: Low HDL-cholesterol (major risk factor for CHD) >= 60 mg/dL: High HDL-cholesterol (negative risk factor for CHD) HDL-cholesterol is affected by a number of factors, e.g. smoking, exercise, hormones, sex and age. Performed By: #### L 500.4050, L501.9910, L506.1001, L500.4100, L100.0100, L501.4021 #### [facility] [address] [place], [address] Cholesterol in LDL [Mass/Vol] 74 mg/dL Normal [facility] Comment on above: Result Comment: Bord nckcnl=695-434 mg/dL Higher Sfjm=321 mg/dL or greater Friedwald Equation for LDL-C Performed By: #### L 500.4050, L501.9910, L506.1001, L500.4100, L100.0100, L501.4021 #### [facility] [address] [place], [address] Cholesterol in VLDL [Mass/Vol] 19 mg/dL Normal 5-40 [facility] Comment on above: Performed By: #### L 500.4050, L501.9910, L506.1001, L500.4100, L100.0100, L501.4021 #### [facility] [address] [place], [address] Triglyceride [Mass/Vol] 95 mg/dL Normal [facility] Comment on above: Result Comment: The drugs N-Acetylcysteine and Metamizole may falsely depress this assay. Normal range: <150 mg/dL Borderline High: 150-199 mg/dL High: 200-499 mg/dL Very High: >500 mg/dL Performed By: #### L 500.4050, L501.9910, L506.1001, L500.4100, L100.0100, L501.4021 #### [facility] [address] [place], [address] MCV (mean corpuscular volume ) determinationOrdered By: Grayson Carney on 01-02-2025 MCV (RBC) [Entitic vol] 93.9 fL 80-94 [facility] Mean corpuscular hemoglobin (MCH) determinationOrdered By: Grayson Carney on 01-02-2025 MCH (RBC) [Entitic mass] 31.6 pg 27.0-32.0 [facility] Mean corpuscular hemoglobin concentration (MCHC) determinationOrdered By: Grayson Carney on 01-02-2025 MCHC (RBC) [Mass/Vol] 33.7 g/dL 32-36 [facility] Mean platelet volume determi nationOrdered By: Grayson Carney on 01-02-2025 Platelet mean volume (Bld) [Entitic vol] 9.2 fL 6.2-12.0 [facility] Monocyte percentageOrdered B y: Grayson Carney on 01-02-2025 Monocytes/100 WBC (Bld) 8.9 % 0-[address] [facility] Neutrophil percentageOrdered By: [facility] on 01-02-2025 Neutrophils/100 WBC (Bld) 61.5 % 47-70 [facility] Nucleated red blood cell per centageOrdered By: Grayson Carney on 01-02-2025 Nucleated RBC/100 WBC (Bld) [Ratio] 0 % 0-5 [facility] PSA,Total - Annual Screenon 01-02-2025 PSA,TOT SCREEN 0.26 ng/mL Normal 0.02-4.00 [facility] Comment on above: Result Comment: This [...] 500.4050, L501.9910, L506.1001, L500.4100, L100.0100, L501.4021 #### [facility] [address] [place], [address] Platelet countOrdered By: Rose Carney on 01-02-2025 Platelets (Bld) [#/Vol] 244 10*3/uL 150-450 [facility] Potassium measurement (mass/ volume)Ordered By: Grayson Carney on 01-02-2025 Potassium (Unsp spec) [Mass/Vol] 3.7 mmol/L 3.3-5.1 [facility] RBC Auto (Bld) [#/Vol]Ordere d By: Grayson Carney on 01-02-2025 RBC (Bld) [#/Vol] 4.27 10*6/uL Low 4.6-6.2 [facility] Screening total cholesterol/ high density lipoprotein (HDL) cholesterol ratioOrdered By: Grayson Carney on 01-02-2025 Cholesterol.total/Choles terol in HDL [Mass ratio] 2.82 {ratio} [facility] Serum creatinine measurement (mass/volume)Ordered By: Grayson Carney on 01-02-2025 Creatinine [Mass/Vol] 0.85 mg/dL 0.70-1.20 [facility] Serum globulin measurementOr dered By: Grayson Carney on 01-02-2025 Globulin (S) [Mass/Vol] 2.6 g/dL 2.2-4.[address] [facility] Serum glucose measurement (m ass/volume)Ordered By: Grayson Carney on 01-02-2025 Glucose [Mass/Vol] 73 mg/dL 70-99 [facility] Serum or plasma alanine kirkland otransferase (ALT) measurementOrdered By: Grayson Carney on 01-02-2025 ALT [Catalytic activity/Vol] 19 U/L <47 [facility] Serum or plasma albumin baldo urement (mass/volume)Ordered By: Grayson Carney on 01-02-2025 Albumin [Mass/Vol] 4.2 g/dL 3.4-4.8 [facility] Serum or plasma albumin/glob ulin mass ratioOrdered By: Grayson Carney on 01-02-2025 Albumin/Globulin [Mass ratio] 1.6 {ratio} 0.9-2.4 [facility] Serum or plasma alkaline imer sphatase measurementOrdered By: Grayson Carney on 01-02-2025 ALP [Catalytic activity/Vol] 73 U/L 40-129 [facility] Serum or plasma calcium baldo urement (mass/volume)Ordered By: Grayson Carney on 01-02-2025 Calcium [Mass/Vol] 9.0 mg/dL 7.6-11.0 [facility] Serum or plasma cholesterol in HDL measurement (mass/volume)Ordered By: Grayson Carney on 01-02-2025 Cholesterol in HDL [Mass/Vol] 51 mg/dL >40 [facility] Comment on above: National Cholesterol Education Program (NCEP) guidelines:<40 mg/dL: Low HDL-cholesterol (major risk factor for CHD)>= 60 mg/dL: High HDL-cholesterol (negative risk factor for CHD)HDL-cholesterol is affected by a number of factors, e.g. smoking, exercise, hormones, sex and age. Serum or plasma cholesterol measurement (mass/volume)Ordered By: Grayson Carney on 01-02-2025 Cholesterol [Mass/Vol] 144 mg/dL <201 [facility] Comment on above: Cholesterol level, D esirable <200 mg/dLBorderline high cholesterol 200-239 mg/dLHigh cholesterol >=240 mg/dLRecommendations of the NCEP Adult Treatment Panel for the following risk-cutoff thresholds for the [place] population. Serum or plasma urea nitroge n measurement (mass/volume)Ordered By: Grayson Carney on 01-02-2025 Urea nitrogen [Mass/Vol] 22 mg/dL High 4-19 [facility] Sodium levelOrdered By: Bipin Carney on 01-02-2025 Sodium [Moles/Vol] 142 mmol/L 133-145 [facility] Total proteinOrdered By: Ernestina Carney on 01-02-2025 Protein [Mass/Vol] 6.8 g/dL 5.9-8.4 [facility] Triglycerides measurementOrd ered By: Grayson Carney on 01-02-2025 Triglyceride [Mass/Vol] 95 mg/dL <[address] [facility] Comment on above: The drugs N-Acetylcy steine and Metamizole may falsely depress this assay. Normal range: <150 mg/dLBorderline High: 150-199 mg/dLHigh: 200-499 mg/dLVery High: >500 mg/dL Troponin T.cardiac [Mass/vol ume] in Serum or Plasma by High sensitivity methodOrdered By: Grayson Carney on 01-02-2025 Troponin T.cardiac High sensitivity method [Mass/Vol] 7 ng/L <22 [facility] Vitamin D,25 Hydroxyon 01-02 Vitamin D 25-OH 34.1 ng/mL Normal 30-100 [facility] Comment on above: Result Comment: Sadie min D Status Deficiency: <20 ng/mL (50nmol/L) Insufficiency: 20-30 ng/mL (50-75 nmol/L) Sufficiency: 30-100 ng/mL (75-250 nmol/L) Toxicity: >100 ng/mL (>250 nmol/L) Performed By: #### L 500.4050, L501.9910, L506.1001, L500.4100, L100.0100, L501.4021 #### [facility] [address] [place], [address] White blood cell (WBC) count Ordered By: Grayson Carney on 01-02-2025 WBC (Bld) [#/Vol] 6.6 10*3/uL 4.4-11.0 [facility] Chest PA and Lateralon 01-01 Chest PA and Lateral [facility] Services [address] [place] [address] Chest PA and Lateral MR#: [id number] Acct: [id number] Name: EVELYN CRUZ Rep #: [id number] : 1950 M 74 From: Corbin Abarca PCP: Dr. Grayson Carney MD Status: REG CLI Study: Chest PA and Lateral Date of Exam: 01/01/25 Exam# [id number] Ordering Dr: Grayson Carney MD PROCEDURE: CHEST [...] acute osseous change is evident. Reading Location: [place] [address] CC: Dr. Grayson Carney MD Button Attaching Machine Operator: Signed Normal [facility] Cardiovascular stress test r eportOrdered By: Xavier Mercer on 09-05-2024 Study report [facility] [address] [place] [address] MR#: [id number] Acct: [id number] Name: EVELYN CRUZ Rep #: [id number] : 1950 74 From: Xavier Mercer [...] No arrhythmias noted. No angina present. 09/05/24 154 Date _ Xavier Mercer MD CC: Dr. Grayson Carney MD ~ Date Dictated: 09/05/241546 Date Transcribed: 09/05/241546 Button Attaching Machine Operator: CO Signed [facility] Work Phone: Stress Reporton 09-05-2024 Stress Report [facility] [address] [place] [address] MR#: [id number] Acct: [id number] Name: EVELYN CRUZ Rep #: [id number] : 1950 74 From: Xavier Mercer MD [...] arrhythmias noted. No angina present. 09/05/241548 Date Xavier Mercer MD CC: Dr. Grayson Carney MD Date Dictated: 09/05/241546 Date Transcribed: 09/05/241546 Button Attaching Machine Operator: CO Signed [facility] 05-21-2024 [facility] Office Visit (UCW[facility] ) EVELYN CRUZ ([id number]) 1950 M Date Time Provider Department 05/21/24 9:30 AM MÓNICA FREEMAN [facility] During your visit today, we recorded the following information about you: Temperature Pulse Respiration Blood pressure 96.9 degrees 74/minute 16/minute 132/84 Weight 88.3 kg Mónica Freeman APRN.STUDENT OUTREACH COORDINATOR 05/21/2024 11:44 AM Signed Subjective HPI HPI Evelyn Cruz is a 73 year old male who presents today for CC of cough, congestion. This started 1 week ago. Has tried otc medication for relief. Symptoms are worsened by nothing. Risk factors sick exposures. Hx of sinus infections. Nonsmoker. Patient not known to [facility], denies renal/hepatic disease. .Patient presents with: Chest [...] 125 MG TABLET Agrees to plan Declines tomi Freeman APRN.STUDENT OUTREACH COORDINATOR Allergies As of Date: 05/21/2024 (No Known Allergies) Date Reviewed: 05/21/2024 Reviewed by: Jayne Holbrook MA - Fully Assessed Reason for Visit: Chest Congestion [236] Cmt: cough, sinus pressure, headache x 1 week Primary Visit Diagnosis:Bacterial sinusitis [J32.9, B96.89] Order(s):amoxicillin-c lavulanate potassium (AUGMENTIN) 875-125 mg per tabletTake 1 [...] 1 capsule by mouth every afternoon. - amoxicillin-clavulanat e potassium (AUGMENTIN) 875-125 mg per tablet Take [...] MÓNICA FREEMAN on 05/21/24 Normal [facility] Vital Signs Date Time Vital Sign Value Performing Clinician Facility 02-13-2025 08:22-0400 Body height 180.34 cm Grayson Carney MD Work Phone: [facility] 02-13-2025 08:22-0400 Body mass index (BMI) [Ratio] 27.7 kg/m2 Grayson Carney MD Work Phone: [facility] 02-13-2025 08:22-0400 Body weight 90.26 kg Grayson Carney MD Work Phone: [facility] 02-13-2025 08:22-0400 Diastolic blood pressure 88 mm[Hg] Grayson Carney MD Work Phone: [facility] 02-13-2025 08:22-0400 Heart rate 84 /min Grayson Carney MD Work Phone: [facility] 02-13-2025 08:22-0400 Respiratory rate 18 /min Grayson Carney MD Work Phone: [facility] 02-13-2025 08:22-0400 SaO2% (BldA) [Mass fraction] 92 % Grayson Carney MD Work Phone: [facility] 02-13-2025 08:22-0400 Systolic blood pressure 141 mm[Hg] Grayson Carney MD Work Phone: [facility] 05-21-2024 09:39-0500 Body temperature 96.91 [degF] Mónica Freeman DIETARY CLERK.STUDENT OUTREACH COORDINATOR Work Phone: [facility] 05-21-2024 09:39-0500 Body weight 88.3 kg Mónica Freeamn APRN.STUDENT OUTREACH COORDINATOR Work Phone: [facility] 05-21-2024 09:39-0500 Diastolic blood pressure 84 mm[Hg] Mónica Freeman APRN.STUDENT OUTREACH COORDINATOR Work Phone: [facility] 05-21-2024 09:39-0500 Heart rate 74 /min Mónica Freeman DIETARY CLERK.STUDENT OUTREACH COORDINATOR Work Phone: [facility] 05-21-2024 09:39-0500 Respiratory rate 16 /min Mónica Freeman DIETARY CLERK.STUDENT OUTREACH COORDINATOR Work Phone: [facility] 05-21-2024 09:39-0500 SaO2% (BldA) [Mass fraction] 96 % Mónica Freeman DIETARY CLERK.STUDENT OUTREACH COORDINATOR Work Phone: [facility] 05-21-2024 09:39-0500 Systolic blood pressure 132 mm[Hg] Mónica Freeman DIETARY CLERK.STUDENT OUTREACH COORDINATOR Work Phone: [facility] Encounters Encounter Date Encounter Type Care Provider Facility Start: 03-11-2025 ambulatory [facility] Facility [facility] Start: 02-27-2025 ambulatory [facility] Facility:[facility] Start: 02-13-2025 End: 02-13-2025 ambulatory Grayson Carney Facility:[facility] Start: 01-25-2025 ambulatory Grayson Rommel Facility:[facility] Start: 01-25-2025 Non-patient / Non-visit Dr. Magi Moore MD -[facility] Start: 01-23-2025 End: 01-23-2025 ambulatory Grayson Carney MD Work Phone: -[facility] Start: 01-23-2025 End: 01-23-[address] Grayson Carney MD -[facility] Work Phone: Start: 01-23-2025 End: 01-23-2025 ambulatory Grayson Carney Facility:[facility] Start: 01-09-2025 Encounter for genera l adult medical examination without abnormal findings Grayson Carney [facility] Start: 01-02-2025 End: 01-02-2025 ambulatory Grayson Carney MD Work Phone: -[facility] [place] Start: 01-02-2025 End: 01-02-[address] Grayson Carney MD -[facility] [place] Work Phone: Start: 01-01-2025 End: 01-02-2025 ambulatory Grayson Carney MD Work Phone: -[facility] [place] Start: 01-01-2025 End: 01-01-[address] Grayson Carney MD -[facility] [place] Work Phone: Start: 01-01-2025 End: 01-01-2025 ambulatory Grayson Carney Facility:[facility] Start: 09-05-2024 ambulatory Xavier Mercer Facility:[facility] Start: 09-05-2024 Non-patient / Non-visit Dr. Lorena JANE -[facility] Start: 09-05-2024 End: 09-05-2024 ambulatory Grayson Carney MD Work Phone: [facility] Work Phone: Start: 09-05-2024 End: 09-05-[address] Grayson Carney MD -Cardiovascular Services Work Phone: Start: 09-05-2024 End: 09-05-2024 ambulatory Grayson Carney Facility:[facility] Start: 05-21-2024 End: 05-21-2024 ambulatory [facility] Facility:[facility] Start: 05-21-2024 End: 05-21-2024 Patient encounter procedure Mónica Freeman SHEA Work Phone: [facility] Comment on above: Bacterial sinusitis (Primary Dx) Procedures Date Procedure Procedure Detail Performing Clinician Start: 01-23-2025 Cardiovascular stres s test using pharmacologic stress agent Grayson Carney MD Work Phone: Start: 01-02-2025 Prostate specific an tigen measurement [...] Author Start: 2025 RSV Vaccine (1 - 1-dose 75+ series) RSV Vaccine (1 - 1-dose 75+ series) [facility] Start: 02-13-2025 Evaluation of diagnostic study results [facility] Start: 02-13-2025 End: 02-13-2025 Patient encounter procedure CAD (coronary atherosclerotic disease) -[facility] Work Phone: Start: 04-23-2024 Advance Directive Discussion Advance Directive Discussion [facility] Start: 12-23-2023 Covid-19 Vaccine ( season) Covid-19 Vaccine ( season) [facility] Start: 12-23-2023 Influenza vaccination Influenza Vaccine (#1) [facility] Start: 2000 Pneumococcal Vaccine: 50+ (1 of 1 - PCV) Pneumococcal Vaccine: 50+ (1 of 1 - PCV) [facility] Start: 2000 Shingrix Vaccine (1 of 2) Shingrix Vaccine (1 of 2) [facility] Start: 08-16-1995 Diabetes Screening Diabetes Screening [facility] Start: 08-16-1995 Screening for malignant neoplasm of colon [facility] Start: 1985 Lipid panel Lipid Screening [facility] Start: 1969 Urine microalbumin profile DTaP,Tdap,Td Vaccine (1 - Tdap) [facility] Start: 1968 Anxiety Screening Anxiety Screening [facility] Start: 1968 Depression Screening Depression Screening [facility] Start: 1968 Hepatitis C screening Hepatitis C Screening [facility] Payers Date Payer Category Payer Self-pay 2024 Medicare AETNA MEDICARE A ETNA MEDICARE PPO [id number] 2024-Present [phone] [address] [place] [address] PPO [id number] 2024 Medicare [id number] Unknown [id number] Unknown [id number] Unknown [id number] Unknown [id number] Unknown [id number] Unknown [id number] Unknown [id number] Unknown [id number] Unknown [id number] Social History Date Type Detail Facility Tobacco smoking status IDIS Tobacco smoking consumption unknown [facility] Start: 1950 Sex assigned at Not on file [facility] Gender identity Not on file [facility] Start: 1950 Sex Assigned At Male [facility] Start: 02-13-2025 Tobacco smoking status IDIS Ex-smoker (finding) [facility] Radiology Diagnostic study note 01-01-2025 Note Date & Type Note Facility 01-01-2025 Radiology Diagnostic study note [facility] Imaging Services [address] [place], [place] [address] Chest PA and Lateral MR#: [id number] Acct: [id number] Name: EVELYN CRUZ Rep #: [id number] : 1950 M 74 From: Josep Condon MD PCP: Dr. Grayson Carney MD Status: REG CL I Study:Chest PA and Lateral Date of Exam: 01/01/25 Exam# [id number] Ordering Dr: Ernestina Carney MD PROCEDURE: CHEST [...] acute osseous change is evident. Reading Location: [place] [address] CC: Dr. 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 Author Type: Nurse Practitioner Type: Progress Notes Filed: 05/21/2024 11:44 Note Text: Subjective HPI HPI Evelyn Cruz is a 73 year old male who presents today for CC of cough, congestion. This started 1 week ago. Has tried otc medication for relief. Symptoms are worsened by nothing. Risk factors sick exposures. Hx of sinus infections. Nonsmoker. Patient not known to [facility], denies renal/hepatic disease. .Patient presents with: Chest [...] Agrees to plan Declines jessicas Mónica Freeman APRN.STUDENT OUTREACH COORDINATOR [facility] History of Present illness Narrative 05-21-2024 Mónica Freeman APRN.STUDENT OUTREACH COORDINATOR - 05/21/2024 9:39 AM EST Note Date & Type Note Facility 05-21-2024 History of Presen t illness Narrative Subjective HPI HPI Evelyn Cruz is a 73 year old male who presents today for CC of cough, congestion. This started 1 week ago. Has tried otc medication for relief. Symptoms are worsened by nothing. Risk factors sick exposures. Hx of sinus infections. Nonsmoker. Patient not known to [facility], denies renal/hepatic disease. .Patient presents with: Chest [...] Agrees to plan Declines avs Mónica Freeman APRN.STUDENT OUTREACH COORDINATOR documented in this encounter [facility] Evaluation note Note Date & Type Note Facility Evaluation note Diagnosis Bacterial sinusitis- Primary Unspecified sinusitis (chronic) documented in this encounter [facility] Evaluation note Note Date & Type Note Facility Evaluation note No assessment information availa ble [facility] Work Phone: Evaluation note Note Date & Type Note Facility Evaluation note Diagnosis Onset Date Resolution CAD (coronary atherosclerotic disease) acute February 13, 2025 8:14am SOB (shortness of breath) on exertion acute February 13 8:14am Hypertension chronic January 8:14am [facility] Work Phone: Reason for referral (narrative) Note Date & Type Note Facility Reason for referral (narrative) No reason for referral information available [facility] Work Phone: Summary Purpose Family History No Family History Records Found Relationship Condition Age at Onset Recorded Date/T keaton mother Cardiac disease Unknown Advance Directives No Advanced Directives Records FoundNo Advanced Directives Records Found Chief Complaint and Reason for Visit Chief Complaint Admit Date CHEST PAIN September 05, 2024 10:22 am CHEST PAIN September 05, 2024 3:47p m Chief Complaint Admit Date SOB on exertion January 01, 2025 10:08am Chief Complaint Admit Date SOB on exertion January 01, 2025 10:08am CAD January 23, 2025 6: 14am Coronary artery disease January 25 5:58pm SOB On Exertion ([place]) February 13 8:14am Reason for Visit Admit Date CAD (coronary atherosclerotic disease) O ctober 2024 8:14am SOB (shortness of breath) on exertion Oc tober 2024 8:14am Hypertension February 13, 2025 8 :14am Additional Source Comments Source Comments (unrecognize d section and content) In the event this informatio n is protected by the Federal Confidentiality of Alcohol and Drug Abuse Patient Records regulations: The Federal rules restrict any use of the information to criminally investigate or prosecute any alcohol or drug abuse patient.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 Xavier Mercer MD Attending Provider [...] 2025 Team Status: Inactive Member Role/Relationship Status Juan Carney MD Primary care physician Active S tart: January 02, 2025 End: January 02, 2025 Grayson Carney MD Attending physician Active Star t: January 02, 2025 End: January 02, 2025 Grayson Carney MD Referring Provider Active Start : January 02, 2025 End: January 02, 2025 Team Status: Inactive Member Role/Relationship Status Juan Carney MD Primary care physician Active S tart: January 23, 2025 End: January 23, 2025 Grayson Carney MD Attending physician Active Star t: January 23, 2025 End: January 23, 2025 Grayson Carney MD Referring Provider Active Start : January 23, 2025 End: January 23, 2025 Team Status: Active Member Role/Relationship Status Juan Carney MD Primary care physician Active S tart: January 25, 2025 Grayson Carney MD Referring Provider Active Start : January 25, 2025 Grayson Carney MD Nurse Practitioner Active Start : January 25, 2025 Dr. Tom Moore MD Attending physician Acti ve Start: January 25, 2025 Team Status: Inactive Member Role/Relationship Status Juan Carney MD Primary care physician Active S tart: February 13, 2025 End: February 13, 2025 Grayson Carney MD Referring Provider Active Start : February 13, 2025 End: February 13, 2025 Dr. Yosi Pineda MD Attending physician Active Start: February 13, 2025 End: February 13, 2025 (unrecognized sect ion and content) No Status Records FoundNo Status Records Found INFORMATION SOURCE (unrecogn ized section and content) DATE CREATED AUTHOR 05/23/2024 [facility] DATE CREATED AUTHOR AUTHOR'S JANIZ ATEMELY 02/27/2025 [facility] Goals (unrecognized section and content) Goals may [...] BE BASED ON THE PRIMARY CLINICAL RECORDS. [employer] provides no warranty or guarantee of the accuracy or completeness of information in this document.
== END | disposition home or self-care (01) ==
LOC: CVS 13:51
PROVIDERS: PCP Family Medicine; Referring Provider Internal Medicine Cardiovascular Disease; Visit Provider Internal Medicine Cardiovascular Disease
DX: R06.02 Shortness of breath (principal)
CPT/HCPCS: 93306; Q9957; A4216; C8929